=== PATIENT | male | born 1970 | race Caucasian/White ===

== ENCOUNTER 2017-05-22 14:20 | Observation (INO) | payer OTHER ==
[~2017-05-22] VITALS: Ht 185.4 cm; Wt 110.5 kg
[~2017-05-22 14:20] MED LIST: ASPI1TAB83 PO; ATOR80TA PO; CLOP1TAB15 PO; DXY100 PO; ISOS60TA25 PO; LISI5TAB3 PO; METO50TA16 PO; OXYC-57 PO; XPNIN INH
[2017-05-22] MEDS ORDERED: SODIUM CHLORIDE 0.9% 1000ML 1,000 ML IV STA (14:49)
[2017-05-22] MEDS ORDERED: HYDR-5688 PO (14:50)
[2017-05-22] MEDS ORDERED: ALPR-411 PO (14:50)
[2017-05-22 15:03] LABS: BASO % 0.4 %; BASO ABS # 0.03 K/uL (0-0.2); COMPLETE YES; HEMATOCRIT 39.3 % (42-52); IG% 0.1 %; LYMPH % 27.9 %; LYMPH ABS # 1.97 K/uL (1.2-3.4); MEAN CELL VOLUME 90.6 fL (80-100); MEAN CORPUSCULAR HEMOGLOBIN 31.6 pg (25-34); MEAN CORPUSCULAR HGB CONC 34.9 g/dl (32-36); MONO % 8.2 %; NEUT % 61.4 %; PLATELET COUNT 182 K/uL (130-400); RED BLOOD COUNT 4.34 M/uL (4.7-6.1); WHITE BLOOD COUNT 7.07 K/uL (4.8-10.8)
--- NOTE | 2017-05-22 15:07 | DIAGNOSTIC IMAGING REPORT ---
CHEST ONE VIEW PORTABLE CLINICAL HISTORY: CHEST PAIN dyspnea COMPARISON STUDY: 05/13/2016 FINDINGS: The bones soft tissues and hemidiaphragms are normal. The cardiomediastinal silhouette is normal. The lungs are clear. The pulmonary vasculature is normal. IMPRESSION: Negative chest. Electronically signed by: Dirk Sibley M.D. 05/22/2017 3:06 PM Dictated Date/Time: 05/22/2017 3:06 PM
[2017-05-22 15:16] LABS: PARTIAL THROMBOPLASTIN RATIO 1.1; PROTHROMBIN TIME (PATIENT) 10.6 SECONDS (9.0-12.0)
[2017-05-22 15:21] LABS: BLOOD UREA NITROGEN 19 mg/dl (7-18); BUN/CREATININE RATIO 20.4 (10-20); CALCIUM 9.1 mg/dl (8.5-10.1); CARBON DIOXIDE 25 mmol/L (21-32); CHLORIDE 108 mmol/L (98-107); CREATININE 0.93 mg/dl (0.60-1.40); GLUCOSE 108 mg/dl (70-99); POTASSIUM 4.1 mmol/L (3.5-5.1); SODIUM 140 mmol/L (136-145)
[2017-05-22 15:24] LABS: ALKALINE PHOSPHATASE 56 U/L (45-117); ALT/SGPT 40 U/L (12-78); AST/SGOT 23 U/L (15-37)
[2017-05-22] MEDS ORDERED: IV FLUIDS COMPLETED PRN (16:30)
[2017-05-22] MEDS ORDERED: ASPIRIN 81 MG CHEW PO STA (16:38)
[2017-05-22 16:43] LABS: CKMB/CK RATIO 1.6 (0-3.0)
[2017-05-22] MEDS ORDERED: ACETAMINOPHEN 325 MG TAB PO PRN (16:45)
[2017-05-22] MEDS ORDERED: NITROGLYCERIN 0.4 MG SL PER TAB CHARGE SL PRN (16:45)
[2017-05-22] MEDS ORDERED: ONDANSETRON INJ 2 MG/ML 2 ML VIAL IV PRN (16:45)
[2017-05-22] MEDS ORDERED: LSN5 PO (16:51)
[2017-05-22] MEDS ORDERED: NTRGSL/4 SL (16:51)
[2017-05-22] MEDS ORDERED: ALPRAZOLAM 0.5 MG TAB PO PRN (17:00)
[2017-05-22 17:33] VITALS: BP 144/74; PULSE 61; TEMP 36.6; O2SAT 97; Ht 185.4 cm; Wt 110.5 kg
--- NOTE | 2017-05-22 19:24 | History and Physical ---
History & Physical Date & Time of Service: May 22, 2017 at 16:48 Chief Complaint: Chest Discomfort, Sob Primary Care Physician: Dirk Mcnulty M.D. History of Present Illness Source: patient, clinic records, hospital records This is a 46 y/o male with PMH of premature CAD s/p multiple stents, last stent placed 07/2016 [place] [facility] [place] [facility] [place], hypertension, dyslipidemia, tobacco abuse, lumbar spinal stenosis, and other problems listed below who presents to the ED with chest pain. Patient states chest pain has been intermittent x 2 weeks. Pain occurs with exertion and resolves with rest. Episodes last 30 seconds to a few minutes. He describes tension in substernal area with radiation to his left upper chest and his anterior neck. He is diaphoretic with the episodes. While working last night he had an episode of nausea and lightheadedness which resolved after 1 minute. He was doing heavy lifting at work last night of 55 lb boxes. He also reports SRINIVASAN for past few weeks at work and with climbing stairs which is unusual for him. Last episode of chest pain was this morning. He is now chest pain free. Has not taken nitro. Patient states last time he felt this way in 07/2016 Dr. Matos scheduled him for a cardiac cath and he was found to have a blockage which was stented. Patient was treated for acute sinusitis in early 05/2017 with resolution. Now has baseline "smoker's cough" with clear sputum. Had cut down to 1/4 PPD on Chantix but now increased to 1 PPD due to recent stress at home. He denies fever, chills, rhinorrhea, syncope, palpitations, reflux, vomiting, abdominal pain, change in bowel or bladder movements, calf pain, edema, abnormal bleeding. Past Medical/Surgical History Medical Problems: (1) Coronary artery disease Status: Chronic (2) Dyslipidemia Status: Chronic (3) History of kidney stones Status: Chronic (4) Hypertension Status: Chronic (5) Lumbar spinal stenosis Status: Chronic (6) Melanoma Status: Resolved (7) Myocardial infarct Status: Resolved (8) Tobacco use disorder Status: Chronic Surgical Problems: (1) H/O melanoma excision Status: Chronic (2) H/O vasectomy Status: Chronic (3) History of arthroscopy of right shoulder Status: Chronic (4) S/P ACL repair Permanent Comment: left knee Status: Chronic (5) S/p subcutaneous tumor removal Status: Chronic (6) Stented coronary artery Permanent Comment: 12/25/2010- POBA to diagonal; 12/03/2012- BMS to circumflex; - PCI/ BMS of 90% ostial RCA at [facility]; 07/08/2016- PCI/ RICKY to right PDA at [facility] [place] Status: Resolved Family History Cancer Diabetes mellitus Premature CAD FATHER (first IN age 38, s/p heart transplant age 50, alive) Social History Smoking Status: Current Every Day Smoker (1 ppd. had cut down to 1/4 ppd on Chantix but recently increased. ) Alcohol Use: occasionally Drug Use: none Marital Status: Housing status: lives with family Occupational Status: employed Immunizations History of Influenza Vaccine: Yes Influenza Vaccine Date: Sep 23, 2012 History of Tetanus Vaccine?: Unknown History of Pneumococcal: No History of Hepatitis B Vaccine: Unknown Multi-Drug Resistant Organisms History of MDRO: No Allergies Coded Allergies: No Known Allergies (Verified , 05/13/16) Home Medications Scheduled Aspirin (Aspirin), 81 MG PO DAILY Atorvastatin Calcium (Lipitor), 80 MG PO HS Clopidogrel (Plavix), 75 MG PO DAILY Hydrocodone/Acetaminophen 5MG/325MG ([place] 5MG/325MG), 2 TABLETS PO QAM Isosorbide Mononitrate Ext Rel (Imdur Ext Rel), 120 MG PO QAM Lisinopril (Lisinopril), 5 MG PO DAILY Metoprolol Tartrate (Lopressor) (Lopressor), 50 MG PO BID Scheduled PRN Alprazolam (Xanax), 0.5 MG PO TID PRN for Anxiety Nitroglycerin (Nitrostat), 1 TAB SL UD PRN for Chest Pain Review of Systems Ten systems reviewed and negative except as noted in HPI. Physical Exam Vital Signs Date Time Temp Pulse Resp B/P (MAP) Pulse Ox O2 Delivery O2 Flow Rate FiO2 05/22/17 15:56 107/66 05/22/17 15:50 67 20 93 05/22/17 15:20 70 17 94 05/22/17 14:50 66 18 98 05/22/17 14:29 66 05/22/17 14:22 36.5 75 18 129/76 97 Room Air General Appearance: WD/WN, no apparent distress, + pertinent finding (alert cooperative 46 year old male, no distress) Head: normocephalic, atraumatic Eyes: normal inspection, PERRL, EOMI ENT: hearing grossly normal, pharynx normal Neck: supple, trachea midline Respiratory/Chest: chest non-tender, lungs clear, normal breath sounds, no respiratory distress, no accessory muscle use Cardiovascular: regular rate, rhythm, no murmur Abdomen/GI: normal bowel sounds, non tender, soft Extremities/Musculoskelatal: normal inspection, no calf tenderness, no pedal edema, + pertinent finding (no pain L shoulder ROM) Neurologic/Psych: alert, normal mood/affect, oriented x 3, + pertinent finding (no focal deficit on gross examination) Skin: normal color, warm/dry, no rash (no rash on chest) Diagnostics Laboratory Results Results Past 24 Hours Test 05/22/17 14:55 05/22/17 15:01 Range/Units White Blood Count 7.07 4.8-10.8 K/uL Red Blood Count 4.34 4.7-6.1 M/uL Hemoglobin 13.7 14.0-18.0 g/dL Hematocrit 39.3 42-52 % Mean Corpuscular Volume 90.6 80-100 fL Mean Corpuscular Hemoglobin 31.6 25-34 pg Mean Corpuscular Hemoglobin Concent 34.9 32-36 g/dl Platelet Count 182 130-400 K/uL Mean Platelet Volume 10.0 7.4-10.4 fL Neutrophils (%) (Auto) 61.4 % Lymphocytes (%) (Auto) 27.9 % Monocytes (%) (Auto) 8.2 % Eosinophils (%) (Auto) 2.0 % Basophils (%) (Auto) 0.4 % Neutrophils # (Auto) 4.34 1.4-6.5 K/uL Lymphocytes # (Auto) 1.97 1.2-3.4 K/uL Monocytes # (Auto) 0.58 0.11-0.59 K/uL Eosinophils # (Auto) 0.14 0-0.5 K/uL Basophils # (Auto) 0.03 0-0.2 K/uL RDW Standard Deviation 46.4 36.4-46.3 fL RDW Coefficient of Variation 14.1 11.5-14.5 % Immature Granulocyte % (Auto) 0.1 % Immature Granulocyte # (Auto) 0.01 0.00-0.02 K/uL Prothrombin Time 10.6 9.0-12.0 SECONDS Prothromb Time International Ratio 1.0 0.9-1.1 Activated Partial Thromboplast Time 27.8 21.0-31.0 SECONDS Partial Thromboplastin Ratio 1.1 Sodium Level 140 136-145 mmol/L Potassium Level 4.1 3.5-5.1 mmol/L Chloride Level 108 98-107 mmol/L Carbon Dioxide Level 25 21-32 mmol/L Anion Gap 7.0 3-11 mmol/L Blood Urea Nitrogen 19 7-18 mg/dl Creatinine 0.93 0.60-1.40 mg/dl Est Creatinine Clear Calc Drug Dose 130.8 ml/min Estimated GFR () 115.3 Estimated GFR (Non- 99.5 BUN/Creatinine Ratio 20.4 10-20 Random Glucose 108 70-99 mg/dl Calcium Level 9.1 8.5-10.1 mg/dl Total Bilirubin 0.4 0.2-1 mg/dl Direct Bilirubin < 0.1 0-0.2 mg/dl Aspartate Amino Transf (AST/SGOT) 23 15-37 U/L Alanine Aminotransferase (ALT/SGPT) 40 12-78 U/L Alkaline Phosphatase 56 45-117 U/L Total Creatine Kinase 194 39-308 U/L Creatine Kinase MB 3.2 0.5-3.6 ng/ml Creatine Kinase MB Ratio 1.6 0-3.0 Troponin I < 0.015 0-0.045 ng/ml Total Protein 6.9 6.4-8.2 gm/dl Albumin 3.5 3.4-5.0 gm/dl Lipase 125 73-393 U/L Bedside Troponin I < 0.030 0-0.045 ng/ml Diagnostic Radiology CHEST ONE VIEW PORTABLE CLINICAL HISTORY: CHEST PAIN dyspnea COMPARISON STUDY: 05/13/2016 FINDINGS: The bones soft tissues and hemidiaphragms are normal. The cardiomediastinal silhouette is normal. The lungs are clear. The pulmonary vasculature is normal. IMPRESSION: Negative chest. EKG NSR, 64 bpm, no ST or T wave abnormality, no significant change from prior EKG Impression Assessment and Plan EXERTIONAL CHEST PAIN R/o ACS; known history of premature CAD s/p multiple stents- 12/25/2010- POBA to diagonal; 12/03/2012- BMS to circumflex; 05/13/2016- PCI/ BMS of 90% ostial RCA at [facility]; 07/08/2016- PCI/ RICKY to right PDA at [facility] [place]; HTN, HL, current smoker Prior echo 05/13/2016 - The left ventricle is normal in size. The left ventricular wall motion is normal. Left ventricular systolic function is normal. Ejection Fraction = 55-60%. The right ventricular systolic function is normal. The left atrial size is normal. Right atrial size is normal. No significant valvular pathology. History typical for angina; now chest pain free Initial troponin negative EKG- no ischemic changes CXR- unremarkable Will give 4 baby aspirin Trend serial cardiac enzymes Check echo Repeat EKG in am Continue aspirin, Plavix, isosorbide, beta og, EMI-I, statin Consult cardiology; case discussed with Dr. Hurtado HYPERTENSION BP is stable Continue isosorbide, beta og, EMI-I DYSLIPIDEMIA Continue statin TOBACCO ABUSE Counselled for cessation DVT PROPHYLAXIS Heparin SQ FULL CODE DISPOSITION Observation to telemetry Follows with Dr. Mcnulty for primary care Patient seen in collaboration with Dr. Hunter. Please see his addendum. Agree with above H and P. Briefly 46M with hx of pre mature CAD and multiple stents presents with chest pain going on, on and off for about 2 weeks.Exertion bringing on the pain and rest resolves it. Lately he is getting sob also on exertion. Afebrile. No cough. Currently no pain and hemodynamically stable. Resting comfortably. p/e Ge not in ditress Cvs s1 and s2 heard no murmurs Rs cta b/l no added sounds Abd benign Development Trainer noin focal Ext no edema a/p Chest pain hx of pre mature CAd with stents continue home meds cardiology consulted and plan for cardiac cath in am HTN home meds will monitor VTE Prophylaxis VTE Risk Assessment Done? Y/N: Yes Risk Level: Moderate
[2017-05-22 19:45] VITALS: BP 123/71; PULSE 63; TEMP 36.4; O2SAT 96
[2017-05-22] MEDS ORDERED: ATORVASTATIN 40 MG TAB PO SCH (21:00)
[2017-05-22 21:30] LABS: CKMB/CK RATIO 1.6 (0-3.0)
[2017-05-22] MEDS: METOPROLOL TARTRATE 50 MG TAB PO SCH (21:47)
[2017-05-22] MEDS: HEPARIN SOD 5000 UNIT/0.5 ML CARP SQ SCH (21:47)
--- NOTE | 2017-05-22 23:12 | CARDIOLOGY CONSULTATION ---
DATE OF CONSULTATION: 05/22/2017 REFERRING: Dr. Hunter and Shelly Rosario PA-C. PRIMARY CARE PHYSICIAN: Dr. Mcnulty. PRIMARY CRM SOLUTION ARCHITECT: Dr. Matos. REFERRAL DIAGNOSIS: Crescendo angina. HISTORY OF PRESENT ILLNESS: The patient is a complex 46-year-old male whose history is notable for significant premature atherosclerotic coronary disease with prior coronary intervention including balloon angioplasty to a diagonal in 2010, bare metal stent to the left circumflex in 2012, bare metal stent to a 90% ostial right coronary artery in 05/2016 and subsequent drug-eluting stent to the right posterior descending artery in 07/2016. Underlying medical problems include familial history of premature atherosclerosis, ongoing tobacco use, hypertension, dyslipidemia. The patient presents now noting over the past 2 weeks increasing symptoms of exertional chest pressure, pain, and shortness of breath. His symptoms are clinically consistent with his past angina. Last night had sustained episode lasting several minutes while working at work with associated diaphoresis and lightheadedness. Symptoms spontaneously resolved, though he has felt worse today, contacted physician's office who recommended ER evaluation given persistent symptoms and past episodes. He does note increased emotional stressors at home as well as his ongoing tobacco use. Notes no fevers, chills or sweats. Notes no bleeding difficulties. Notes no melena or hematochezia. Appetite has been good. Weight is up approximately 20 pounds over the last 8 months' time. Denies headache or visual changes. Notes no rash or arthritic complaints. He has been compliant with current medical regimen. ALLERGIES: None. MEDICATIONS: Per history notable for lisinopril 5 mg per day, alprazolam p.r.n., hydrocodone/acetaminophen p.r.n., usually 2 tablets in a.m., atorvastatin 80 mg per day, isosorbide 120 mg p.o. day, Plavix 75 mg per day, metoprolol tartrate 50 mg twice per day, Chantix, aspirin 81 mg per day. REVIEW OF SYSTEMS: As per HPI and otherwise negative. PAST SURGICAL HISTORY: Notable for prior remote vasectomy, knee surgery, arthroscopic shoulder surgery on the right, ACL repair in 2001, melanoma resection 2008 left shoulder. FAMILY HISTORY: Notable for premature coronary disease in the family with father undergoing prior cardiac transplant for progressive coronary artery disease. SOCIAL HISTORY: The patient is a one-half pack per day smoker, is attempting to wean, uses occasional alcoholic beverages, has a production job currently. PHYSICAL EXAMINATION: VITAL SIGNS: Heart rate 64, blood pressure is 103/64. HEENT: Normocephalic, atraumatic. Nares without discharge. Throat is clear. NECK: Supple without thyromegaly, lymphadenopathy, JVD or bruit. LUNGS: Clear to auscultation. CARDIOVASCULAR: Regular with normal S1, S2. There is no murmur, gallop or rub. ABDOMEN: Soft, nontender. There is no palpable hepatosplenomegaly. There is no hepatojugular reflux. EXTREMITIES: Without cyanosis or clubbing. There is no peripheral edema. LABORATORY DATA: Sodium is 140, potassium is 4.1, chloride is 108, bicarb is 25, BUN is 19, creatinine 0.9. CK-MBs and troponins are normal. AST and ALT are normal. Lipase is 125. Chest x-ray reveals no infiltrate or edema. EKG reveals sinus rhythm with normal tracing. White cell count 7.0, hemoglobin is 13.7, platelet count is 182. IMPRESSION: A 46-year-old male with history of premature coronary atherosclerosis, multiple coronary interventions, presents now with symptoms consistent with the patient's angina with episode that sustained last evening at moderate level workload. He has been noting increasing frequency of symptoms over the past 2 weeks. He feels in part due to increased stress at home and increased tobacco use. Notes no sustained episodes. Notes no sensation of tachyarrhythmias. Notes no bleeding difficulties. He has been compliant with meds. RECOMMENDATIONS: We will maintain on telemetry overnight and usual medications as ordered. Anticipate possible cardiac catheterization in a.m., procedure will be scheduled. Procedure and risks explained in detail, the patient is aware of risks and procedure, will be kept n.p.o. after midnight. LOREN
--- NOTE | 2017-05-22 23:26 | EMERGENCY ROOM VISIT NOTE ---
ED Visit Note First contact with patient: 14:47 Chief Complaint: Chest pain. History of Present Illness: Mr. Sherman is a 46 year-old white male complaining of chest pain. Historically patient reports coronary artery disease and is status post stent placement 3, hypertension, dyslipidemia and tobacco use. Additionally he reports he has a family history of premature coronary artery disease. Patient reports over the last 2-3 weeks he has been having recurrent episodes of chest pain. He reports approximately 80% of these episodes are exertional and resolved with rest. He describes his discomfort as a pressure sensation either in the upper sternal area or the midsternal area. His discomfort also radiates into the left anterior chest and left anterior shoulder. At its worse he reports his pain as 5/10 and at its least it is 1/10. Currently he reports he is pain-free. These episode of pain can last 3-5 minutes. He has not taken any medications for his discomfort. He does report for the last time last night it was slightly longer than normal and he developed nausea without vomiting and lightheadedness and felt he was going to pass out. After resting once again his symptoms resolve. Additionally he reports he has been having increasing family stress specifically with his kids. Patient denies fevers, chills, sweats, skin eruptions, skin color changes, upper respiratory tract symptoms, wheezing, cough, shortness of breath, orthopnea, dependent edema, previous clots, claudication, cramping, recent surgery/inactivity/extended travel, abdominal pain, nausea, vomiting, diarrhea, constipation, rectal bleeding, black/tarry stools, urinary symptoms, back/flank pain. Review of Systems: As noted above in history of present illness. All body systems were reviewed and found to be negative as noted above. Past Medical History: As previously noted and kidney stones, lumbar spinal stenosis, melanoma, status post vasectomy, unspecified right shoulder surgery, unspecified anterior cruciate ligament repair. Current Medications: Medications Dose Route/Sig Max Daily Dose Days Date Category Dose Instructions Nitrostat (Nitroglycerin) 0.4 Mg Tab 1 Tab SL UD PRN 05/22/17 Reported Lisinopril 5 Mg Tab 5 Mg PO DAILY 05/22/17 Reported [place] 5MG/325MG (Acetaminophen/Hydrocodone Bitart) Tab 2 Tablets PO QAM 05/22/17 Reported PRN PAIN Xanax (Alprazolam) 0.5 Mg Tab 0.5 Mg PO TID PRN 05/22/17 Reported Imdur Ext Rel (Isosorbide Mononitrate) 60 Mg Ertab 120 Mg PO QAM 12/07/15 Reported Lipitor (Atorvastatin Calcium) 80 Mg Tab 80 Mg PO HS 01/02/14 Reported Aspirin 81 Mg Tab 81 Mg PO DAILY 01/02/14 Reported Lopressor (Metoprolol Tartrate) 50 Mg Tab 50 Mg PO BID 12/22/09 Reported Plavix (Clopidogrel Bisulfate) 75 Mg Tab 75 Mg PO DAILY 12/22/09 Reported Allergies to Medications: Patient denies. Social History: Patient is currently employed; he lives with his family and feels safe in his home environment; he admits to tobacco use. Physical Examination: Vital Signs: Date Time Temp Pulse Resp B/P (MAP) Pulse Ox O2 Delivery O2 Flow Rate FiO2 05/22/17 16:01 64 18 94 05/22/17 15:56 107/66 05/22/17 15:50 67 20 93 05/22/17 15:20 70 17 94 05/22/17 14:50 66 18 98 05/22/17 14:29 66 05/22/17 14:22 36.5 75 18 129/76 97 Room Air GENERAL: 46-year-old male in mild distress due to symptoms, nontoxic-appearing, afebrile and hemodynamically stable. NEUROLOGICAL: Awake, alert and oriented to person, place and time. Answering questions appropriately and following commands. Normal gait. Good hand eye coordination. SKIN: Warm, dry and pink. No soft tissue eruptions or trauma noted. HEENT: Atraumatic and normocephalic. PERRL. Sclera white and conjunctiva pink. Oral cavity moist and pink. Pharynx is nonerythematous or edematous. Speech normal. No lymphadenopathy. Trachea midline. No jugular venous distention. BACK: No tenderness over the bony spine. No CVA tenderness. THORAX: Lungs sounds are clear to auscultation and equal bilaterally with symmetrical chest wall. No wheezing, rales or rhonchi. No crepitus, tenderness , subcutaneous air or deformities noted. HEART: Regular rate and rhythm. No gallops, rubs or murmurs are appreciated. No lifts, heaves or thrills. PMI is not displaced. ABDOMEN: Flat, soft and nontender. Positive bowel sounds in all quadrants. No guarding, rigidity or organomegaly. EXTREMITIES: Moves all extremities well on command and with purpose. All distal neurovascular statuses are intact and equal bilaterally. No dependent edema or calf tenderness/cords. ED Course: Patient is assessed as noted above. Patient's medication list was reviewed. Laboratory Testing: Test 05/22/17 14:55 05/22/17 15:01 Range/Units White Blood Count 7.07 4.8-10.8 K/uL Red Blood Count 4.34 4.7-6.1 M/uL Hemoglobin 13.7 14.0-18.0 g/dL Hematocrit 39.3 42-52 % Mean Corpuscular Volume 90.6 80-100 fL Mean Corpuscular Hemoglobin 31.6 25-34 pg Mean Corpuscular Hemoglobin Concent 34.9 32-36 g/dl Platelet Count 182 130-400 K/uL Mean Platelet Volume 10.0 7.4-10.4 fL Neutrophils (%) (Auto) 61.4 % Lymphocytes (%) (Auto) 27.9 % Monocytes (%) (Auto) 8.2 % Eosinophils (%) (Auto) 2.0 % Basophils (%) (Auto) 0.4 % Neutrophils # (Auto) 4.34 1.4-6.5 K/uL Lymphocytes # (Auto) 1.97 1.2-3.4 K/uL Monocytes # (Auto) 0.58 0.11-0.59 K/uL Eosinophils # (Auto) 0.14 0-0.5 K/uL Basophils # (Auto) 0.03 0-0.2 K/uL RDW Standard Deviation 46.4 36.4-46.3 fL RDW Coefficient of Variation 14.1 11.5-14.5 % Immature Granulocyte % (Auto) 0.1 % Immature Granulocyte # (Auto) 0.01 0.00-0.02 K/uL Prothrombin Time 10.6 9.0-12.0 SECONDS Prothromb Time International Ratio 1.0 0.9-1.1 Activated Partial Thromboplast Time 27.8 21.0-31.0 SECONDS Partial Thromboplastin Ratio 1.1 Sodium Level 140 136-145 mmol/L Potassium Level 4.1 3.5-5.1 mmol/L Chloride Level 108 98-107 mmol/L Carbon Dioxide Level 25 21-32 mmol/L Anion Gap 7.0 3-11 mmol/L Blood Urea Nitrogen 19 7-18 mg/dl Creatinine 0.93 0.60-1.40 mg/dl Est Creatinine Clear Calc Drug Dose 130.8 ml/min Estimated GFR () 115.3 Estimated GFR (Non- 99.5 BUN/Creatinine Ratio 20.4 10-20 Random Glucose 108 70-99 mg/dl Calcium Level 9.1 8.5-10.1 mg/dl Total Bilirubin 0.4 0.2-1 mg/dl Direct Bilirubin < 0.1 0-0.2 mg/dl Aspartate Amino Transf (AST/SGOT) 23 15-37 U/L Alanine Aminotransferase (ALT/SGPT) 40 12-78 U/L Alkaline Phosphatase 56 45-117 U/L Total Creatine Kinase 194 39-308 U/L Creatine Kinase MB 3.2 0.5-3.6 ng/ml Creatine Kinase MB Ratio 1.6 0-3.0 Troponin I < 0.015 0-0.045 ng/ml Total Protein 6.9 6.4-8.2 gm/dl Albumin 3.5 3.4-5.0 gm/dl Lipase 125 73-393 U/L Bedside Troponin I < 0.030 0-0.045 ng/ml Chest X-Rays: Were read by myself and reviewed with Dr. Burton; shows no acute infiltrates, effusions or pneumothorax. Normal heart silhouette and bony anatomy. This was compared to previous and no acute changes were noted. EKG: Was read by myself and reviewed with Dr. Burton; shows normal sinus rhythm with a ventricular rate of 64 bpm. Normal axis, intervals and complexes. No acute ST changes indicating ischemia, injury or infarction. This was compared to a previous and no acute changes were noted. Patient was hydrated with normal saline. Patient was reassessed multiple times during his stay in the emergency department. Patient's case was reviewed with Dr. Burton; we agreed on diagnostic approach, treatment, disposition and plan. Patient's case was consulted with case management and Ms. Vicki PA-C [facility] for medical observation/admission. Patient was educated about today's findings. Clinical Impression: Chest pain. Decision-Making: Initially my differential diagnosis I considered myocardial infarction, pericarditis, pulmonary embolism, pneumothorax, pneumonia, musculoskeletal disorder and other causes. Disposition and Plan: Patient be brought in the hospital by the hospitalist; please see their notes and orders for final disposition and plan.
[2017-05-22 23:39] VITALS: BP 111/71; PULSE 56; TEMP 36.5; O2SAT 96
[2017-05-22] MEDS: SODIUM CHLORIDE 0.9% 1000ML 1,000 ML IV SCH (23:44)
[2017-05-22 23:59] VITALS: O2SAT 96
[2017-05-23] VITALS (18 sets, daily range): BP systolic 116–136; BP diastolic 68–82; PULSE 57–78; TEMP 36.4–36.7; O2SAT 70–97
[2017-05-23 03:35] LABS: CHOLESTEROL 118 mg/dl (0-200); CHOLESTEROL/HDL RATIO 3.1; CKMB/CK RATIO 1.8 (0-3.0); HDL CHOLESTEROL 38 mg/dl; LDL CHOLESTEROL CALCULATED 62 mg/dl; TRIGLYCERIDES 92 mg/dl (0-150); VERY LOW DENSITY LIPOPROT CALC 18 mg/dl
[2017-05-23] MEDS: HEPARIN SOD 5000 UNIT/0.5 ML CARP SQ SCH ×2 (05:33→14:00)
[2017-05-23] MEDS ORDERED: LISINOPRIL 5 MG TAB PO SCH (09:00)
[2017-05-23] MEDS ORDERED: ASPIRIN 81 MG ECTAB PO SCH (09:00)
[2017-05-23] MEDS ORDERED: HYDROCODONE/ACETAMOPHEN 5/325MG TAB PO SCH (09:00)
[2017-05-23] MEDS ORDERED: ISOSORBIDE MONONITRATE 60 MG TABCR PO SCH (09:00)
[2017-05-23] MEDS ORDERED: CLOPIDOGREL BISULFATE 75 MG TAB PO SCH (09:00)
[2017-05-23] MEDS ORDERED: HYDROCODONE/ACETAMOPHEN 5/325MG TAB PO PRN (09:00)
[2017-05-23] MEDS: METOPROLOL TARTRATE 50 MG TAB PO SCH (09:00)
[2017-05-23] MEDS: SODIUM CHLORIDE 0.9% 1000ML 1,000 ML IV SCH (11:58)
--- NOTE | 2017-05-23 13:42 | ECHOCARDIOGRAM REPORT ---
*NOTICE TO RECEIVING DEMOCRAT AGENCY This information is strictly Confidential and protected under [place] law. [place] law prohibits you from making any further disclosure of this information unless further disclosure is expressly permitted by the written consent of the person to whom it pertains or is authorized by law. A general authorization for the release of medical or other information is not sufficient for this purpose. Hospital accepts no responsibility if the information is made available to any other person, INCLUDING THE PATIENT. Interpretation Summary * Name: RA BELTRAN SR Study Date: 05/23/2017 10:44 AM BP: 128/77 mmHg * Patient Location: C.2T\S\E222\S\1 HR: 56 * : 1970 (M/d/yyyy) Gender: Male Height: 72 in * Age: 46 yrs Ethnicity: CA Weight: 246 lb * Ordering Physician: Shelly Rosario * Referring Physician: Shaquille Matos D.O. * Performed By: Rhiannon Martini RCS * * Reason For Study: CHEST PAIN * BSA: 2.3 m2 * -- Conclusions -- * The left ventricle is normal in size. * There is borderline concentric left ventricular hypertrophy. * The left ventricular wall motion is normal. * Left ventricular systolic function is normal. * Ejection Fraction = 55-60%. * The aortic root is normal size. * There is no pericardial effusion. Procedure Details * A complete two-dimensional transthoracic echocardiogram was performed (2D, M-mode, Doppler and color flow Doppler). Left Ventricle * The left ventricle is normal in size. * There is borderline concentric left ventricular hypertrophy. * Ejection Fraction = 55-60%. * Left ventricular systolic function is normal. * The left ventricular wall motion is normal. Right Ventricle * The right ventricle is normal in size and function. Atria * The left atrial size is normal. * Right atrial size is normal. * No ASD detected; PFO is not assessed. Mitral Valve * The mitral valve anatomy is normal. * There is no mitral valve stenosis. * There is trace mitral regurgitation. Tricuspid Valve * The tricuspid valve anatomy is normal. * There is no tricuspid stenosis. * There is trace tricuspid regurgitation. Aortic Valve * The aortic valve is trileaflet. * No hemodynamically significant valvular aortic stenosis. * No aortic regurgitation is present. Pulmonic Valve * The pulmonic valve is not well visualized. Great Vessels * The aortic root is normal size. Pericardium/Pleural * There is no pericardial effusion. Great Vessels * Normal inferior vena cava diameter and respiratory variation suggests normal central venous pressure. MMode 2D Measurements and Calculations IVSd 1.2 cm IVSs 1.6 cm LVIDd 6.0 cm LVIDs 3.7 cm LVPWd 1.0 cm LVPWs 1.3 cm IVS/LVPW 1.1 FS 38.0 % EDV(Teich) 183.0 ml ESV(Teich) 59.9 ml EF(Teich) 67.3 % EDV(cubed) 220.8 ml ESV(cubed) 52.6 ml EF(cubed) 76.2 % % IVS thick 40.9 % % LVPW thick 22.4 % LV mass(C)d 282.2 grams LV mass(C)dI 121.3 grams/m\S\2 LV mass(C)s 201.5 grams LV mass(C)sI 86.6 grams/m\S\2 SV(Teich) 123.1 ml SI(Teich) 52.9 ml/m\S\2 SV(cubed) 168.1 ml SI(cubed) 72.3 ml/m\S\2 Ao root diam 3.3 cm Ao root area 8.4 cm\S\2 ACS 2.5 cm LA dimension 3.8 cm LA/Ao 1.2 LVOT diam 2.0 cm LVOT area 3.0 cm\S\2 LVAd ap4 37.9 cm\S\2 LVLd ap4 9.6 cm EDV(MOD-sp4) 121.6 ml EDV(sp4-el) 127.4 ml LVAs ap4 20.9 cm\S\2 LVLs ap4 7.4 cm ESV(MOD-sp4) 50.7 ml ESV(sp4-el) 49.7 ml EF(MOD-sp4) 58.3 % EF(sp4-el) 61.0 % LVAd ap2 42.5 cm\S\2 LVLd ap2 9.4 cm EDV(MOD-sp2) 158.4 ml EDV(sp2-el) 163.2 ml LVAs ap2 25.3 cm\S\2 LVLs ap2 7.6 cm ESV(MOD-sp2) 72.2 ml ESV(sp2-el) 71.2 ml EF(MOD-sp2) 54.4 % EF(sp2-el) 56.4 % LVLd %diff -2.02 % EDV(MOD-bp) 141.1 ml LVLs %diff 2.7 % ESV(MOD-bp) 61.2 ml EF(MOD-bp) 56.6 % SV(MOD-sp4) 71.0 ml SI(MOD-sp4) 30.5 ml/m\S\2 SV(MOD-sp2) 86.2 ml SI(MOD-sp2) 37.0 ml/m\S\2 SV(MOD-bp) 79.9 ml SI(MOD-bp) 34.3 ml/m\S\2 SV(sp4-el) 77.7 ml SI(sp4-el) 33.4 ml/m\S\2 SV(sp2-el) 92.1 ml SI(sp2-el) 39.6 ml/m\S\2 Doppler Measurements and Calculations MV E max roxana 66.9 cm/sec MV A max roxana 49.6 cm/sec MV E/A 1.3 MV P1/2t max roxana 71.6 cm/sec MV P1/2t 81.6 msec MVA(P1/2t) 2.7 cm\S\2 MV dec slope 257.0 cm/sec\S\2 MV dec time 0.25 sec Ao V2 max 108.7 cm/sec Ao max PG 4.7 mmHg Ao max PG (full) 0.15 mmHg PAT(V,A) 3.0 cm\S\2 PAT(V,D) 3.0 cm\S\2 LV V1 max PG 4.6 mmHg LV V1 max 107.0 cm/sec PA V2 max 94.2 cm/sec PA max PG 3.5 mmHg PI max roxana 162.4 cm/sec PI max PG 10.6 mmHg PI dec slope 136.4 cm/sec\S\2 PI P1/2t 348.9 msec TR max roxana 197.7 cm/sec
[2017-05-23] MEDS ORDERED: NiCARDipine HCL INJ 2.5 MG/ML 10 ML AMP ONE (14:11)
[2017-05-23] MEDS ORDERED: HEPARIN SOD (PORCINE) 1000 UNIT/ML 10 ML VIAL ONE (14:11)
[2017-05-23] MEDS ORDERED: NITROGLYCERIN/D5W 100MCG/ML 20ML SYR ONE (14:12)
[2017-05-23] MEDS ORDERED: FENTANYL CITRATE INJ 50 MCG/1 ML 2 ML VIAL ONE (14:12)
[2017-05-23] MEDS ORDERED: MIDAZOLAM HCL 1 MG/ML 2ML VIAL ONE (14:12)
[2017-05-23] MEDS ORDERED: SODIUM CHLORIDE 0.9% 1000ML 1,000 ML IV SCH (15:03)
[2017-05-23] MEDS ORDERED: SODIUM CHLORIDE 0.9% 1000ML 250 ML IV PRN (15:03)
--- NOTE | 2017-05-23 15:06 | Procedure Note ---
Pre-Mod Sedation Assessment General Date of Moderate Sedation: May 23, 2017. Vital Signs: Vital Signs Past 12 Hours Date Time Temp Pulse Resp B/P (MAP) Pulse Ox O2 Delivery O2 Flow Rate FiO2 05/23/17 15:00 Room Air 05/23/17 14:55 56 16 132/82 (99) 96 Room Air 05/23/17 12:00 Room Air 05/23/17 11:03 36.5 57 20 128/77 (94) 97 Room Air 05/23/17 08:00 Room Air 05/23/17 07:52 36.4 58 20 125/82 (96) 96 Room Air 05/23/17 04:50 36.5 66 20 120/76 95 Room Air 05/23/17 04:31 36.5 66 20 120/76 (91) 95 Room Air 05/23/17 04:00 Room Air Review Cardiovascular: regular rate, rhythm, no murmur, + bradycardia Abdomen: normal bowel sounds Airway Class: II Pre-Sedation Airway Assessment Oral Cavity: Chipped Teeth Short Thick Neck: No Hx of Sleep Apnea: No Smoking Status: Current Every Day Smoker ASA Classification: Class II Procedure Planning Contraindications-for Mod Sed: None Yes Notes The planned sedation has been discussed with the patient and consent obtained. I have identified the patient, determined the appropriateness of sedation and have assessed the patient immediately prior to the procedure. All medicine(s) and interventions are by my order.
[2017-05-23] MEDS ORDERED: ACETAMINOPHEN 325 MG TAB PO PRN (15:15)
--- NOTE | 2017-05-23 15:37 | [facility] Post Operative Brief Note ---
Preliminary Procedure Note Procedure Date May 23, 2017. Pre-Procedure Diagnosis Angina, CAD AUC Score 8 Post-Procedure Diagnosis Moderate CAD Procedure(s) Performed Coronary Angiography, Left Heart Cath, LV Angiography [employer] Technician Dr. Toby Hurtado Chorus Master(s) Carrington Page Estimated Blood Loss 15cc Medication(s) Heparin (5000u iv), Nicardipine (250mcg intraarterial after sheath insertion), Lidocaine 1% (local infiltration) Preliminary Findings Right dominant coronary anatomy Diffuse luminal irregularities all vessels without obstruction LM long with mild calcification, 20% distal stenosis LAD Type 1 with 2 diagonals LCX moderately large with high marginal branch, OM and PL branch. Patent stent in proximal segment without stenosis RCA Very large dominant, patent stents proximal 1/3 with 30% narrowing, distal RCA LV Normal EF 55% LVEDP 8 Recommendations Medical therapy and/or Counseling Specimens None Fluids (cc crystalloids) 57 Anesthesia Start 1432 Versed 1 mg IV, Fentanyl 12.5 mcg IV Stop 1455 Monitor Mere Procedural Complication(s) None Disposition PCU
--- NOTE | 2017-05-23 17:28 | Discharge Instructions ---
Discharge Instructions Procedure Procedure Date: May 23, 2017. Reason for Visit: Chest Discomfort, Sob. Discharge Discharge Date: May 23, 2017. Discharge Diagnosis: Chronic angina pectoris without progression in coronary artery disease Last Recorded Wt (Kilograms): 110.500 Anesthesia Post Anesthesia Instructions: If you have had General Anesthesia or IV Sedation: * Do not drive today. * Resume driving when surgeon permits. * Do not make important decisions or sign legal documents today. * Call surgeon for: 1. Temperature elevations greater than 101 degrees F. 2. Uncontrollable pain. 3. Excessive bleeding. 4. Persistent nausea and vomiting. 5. Medication intolerance (nausea, vomiting or rash). * For nausea and vomiting use only clear liquids such as: tea, soda, bouillon until nausea subsides, then gradually increase diet as tolerated. * If you have any concerns or questions, call your surgeon's office. If physician is unavailable and it is an emergency, call 911 or go to the nearest emergency room. Instructions Activity Recommendations: limitations as noted below Recommended Home Diet: resume previous diet Allergies: Coded Allergies: No Known Allergies (Verified , 05/13/16) Provider Instructions ACTIVITY RECOMMENDATIONS: Excess manipulation of the wrist should be avoided for the next 24-48 hours. * No lifting over 2 pounds (approximately a 1/2 gallon of milk) with the utilized arm for 24 hours. * No strenuous activity such as bowling or tennis for 3 days. * Keep the site of the procedure covered with a bandage for 24 hours. *You may shower the day after the procedure. Do not take a tub bath or submerge the puncture site in water for the next 3 days. *Do not operate any motorized equipment for 3 days. SPECIAL CARE INSTRUCTIONS: The site may be slightly bruised and sore following your procedure. Should any of the following occur, contact the Dr. who performed your procedure. 1. Redness/inflammation, swelling, chills, or fever, or colored drainage at procedure site within 3-7 days after your procedure. 2. Coldness, discoloration, ongoing numbness, severe pain, or swelling. Expect mild tingling of hand and tenderness at the puncture site for up to three days. If this persists beyond three days, or other symptoms develop, notify the Dr. who performed your procedure. BLEEDING: If the procedure site on your wrist begins to bleed, do not panic 1. Place 1 or 2 fingers firmly just slightly above the insertion site to stop the bleeding. You may be able to feel your pulse as you hold pressure. 2. Lift your finger after 5 minutes to see if the bleeding has stopped. 3. Once the bleeding has stopped, gently wipe the wrist area clean with a bandage. * If the bleeding from your wrist does not stop after 10 minutes, or if there is a large amount of bleeding or spurting, call 911 (do not drive yourself to the hospital). SKIN IRRITATION: * You may experience some redness and/or swelling in the area where radiation was administered. If any skin irritation occurs, please contact your family physician. FOLLOW UP VISIT: Keep any scheduled doctor appointments. Follow Up Follow-up with: DR Matos in next months time Marcella Gomez Recommendations: Call your doctor if: * Temperature above 101 degrees * Pain not relieved by pain medicine ordered * There is increased drainage or redness from any incision * You have any unanswered questions or concerns. Your Doctors Instructions noted above were prepared by provider Toby Hurtado. Patient Signature Section: Patient Instructions Signature Page Kenny Sherman Patient (or Guardian) Signature/Date: I have read and understand the instructions given to me by my caregivers. Caregiver/RN/Doctor Signature/Date: The above-named patient and/or guardian has received patient instructions on this date. + Original Patient Signature Page (only) stays with chart. Please make copy for patient.
--- NOTE | 2017-05-23 19:18 | Progress Note ---
Internal Med Progress Note Date of Service: May 23, 2017. Provider Documentation: SUBJECTIVE: currently chest pain free no sob afebrile s/p cardiac cath right radial route afebrile awaiting for discharge OBJECTIVE: Vital Signs-as noted below Exam: General-alert and oriented. Not in distress ENT-normal hearing Neck-no neck masses Lungs-cta b/l no wheezing or crackles Heart-s1 and s2 heard regular no murmurs Abdomen-soft bowel sounds present nontender no distension Extremities-no edema no erythema right radial cath site no erythema or drainage Neuro-alert and oriented moves extremities Lab data as noted below. ASSESSMENT & PLAN: EXERTIONAL CHEST PAIN R/o ACS; known history of premature CAD s/p multiple stents- 12/25/2010- POBA to diagonal; 12/03/2012- BMS to circumflex; 05/13/2016- PCI/ BMS of 90% ostial RCA at [facility]; 07/08/2016- PCI/ RICKY to right PDA [place] [facility] [place]; HTN, HL, current smoker CE and ekg unremarkable echo unremarkable s/p cardiac cath and no new findings discharged with home meds HYPERTENSION BP is stable Continue isosorbide, beta og, EMI-I DYSLIPIDEMIA Continue statin TOBACCO ABUSE Counselled for cessation Discharged home Vital Signs: Date Time Temp Pulse Resp B/P (MAP) Pulse Ox O2 Delivery O2 Flow Rate FiO2 05/23/17 19:00 67 16 134/72 (92) 96 Room Air 05/23/17 17:45 66 18 129/73 (91) 96 Room Air 05/23/17 17:30 67 18 133/78 (96) 96 Room Air 05/23/17 17:15 70 18 121/72 (88) 96 Room Air 05/23/17 17:00 71 20 129/70 (89) 95 Room Air 05/23/17 16:37 67 20 116/68 (84) 94 Room Air 05/23/17 16:25 70 20 123/72 (89) 70 Room Air 05/23/17 16:10 64 18 136/78 (97) 96 Room Air 05/23/17 16:00 Room Air 05/23/17 15:50 58 18 121/76 (91) 96 Room Air 05/23/17 15:35 65 18 94 Room Air 05/23/17 15:24 36.7 59 18 123/75 (91) 95 Room Air 05/23/17 15:23 36.7 59 20 123/75 (91) 95 05/23/17 15:10 53 16 128/76 (93) 95 Room Air 05/23/17 15:00 Room Air 05/23/17 14:55 56 16 132/82 (99) 96 Room Air 05/23/17 12:00 Room Air 05/23/17 11:03 36.5 57 20 128/77 (94) 97 Room Air 05/23/17 08:00 Room Air 05/23/17 07:52 36.4 58 20 125/82 (96) 96 Room Air 05/23/17 04:50 36.5 66 20 120/76 95 Room Air 05/23/17 04:31 36.5 66 20 120/76 (91) 95 Room Air 05/23/17 04:00 Room Air 05/22/17 23:59 96 Room Air 05/22/17 23:39 36.5 56 22 111/71 (84) 96 Room Air 05/22/17 20:00 Room Air 05/22/17 19:45 36.4 63 18 123/71 (88) 96 Room Air Lab Results: Results Past 24 Hours Test 05/22/17 21:02 05/23/17 02:50 Range/Units Total Creatine Kinase 159 137 39-308 U/L Creatine Kinase MB 2.6 2.4 0.5-3.6 ng/ml Creatine Kinase MB Ratio 1.6 1.8 0-3.0 Troponin I < 0.015 < 0.015 0-0.045 ng/ml Triglycerides Level 92 0-150 mg/dl Cholesterol Level 118 0-200 mg/dl HDL Cholesterol 38 mg/dl LDL Cholesterol, Calculated 62 mg/dl VLDL Cholesterol, Calculated 18 mg/dl Cholesterol/HDL Ratio 3.1
--- NOTE | 2017-05-23 19:28 | Discharge Summary ---
Discharge Summary Date of Service May 23, 2017. Discharge Summary Admission Date: May 22, 2017 at 16:10 Discharge Date: May 23, 2017 Discharge Disposition: Home Principal Diagnosis: CHEST PAIN Secondary Diagnoses/Problems: 1) Coronary artery disease Status: Chronic (2) Dyslipidemia Status: Chronic (3) History of kidney stones Status: Chronic (4) Hypertension Status: Chronic (5) Lumbar spinal stenosis Status: Chronic (6) Melanoma Status: Resolved (7) Myocardial infarct Status: Resolved (8) Tobacco use disorder Status: Chronic Procedures: CXR: Negative chest ECHO: The left ventricle is normal in size. * There is borderline concentric left ventricular hypertrophy. * The left ventricular wall motion is normal. * Left ventricular systolic function is normal. * Ejection Fraction = 55-60%. * The aortic root is normal size. * There is no pericardial effusion. S/P CARDIAC CATH Consultations: CARDIOLOGY Medication Reconciliation Continued Medications: Alprazolam (Xanax) 0.5 Mg Tab 0.5 MG PO TID PRN for Anxiety Aspirin (Aspirin) 81 Mg Tab 81 MG PO DAILY Atorvastatin Calcium (Lipitor) 80 Mg Tab 80 MG PO HS, TAB Clopidogrel (Plavix) 75 Mg Tab 75 MG PO DAILY, 0 Refills Hydrocodone/Acetaminophen 5MG/325MG ([place] 5MG/325MG) Tab 2 TABLETS PO QAM PRN PAIN Isosorbide Mononitrate Ext Rel (Imdur Ext Rel) 60 Mg Ertab 120 MG PO QAM, TAB Lisinopril (Lisinopril) 5 Mg Tab 5 MG PO DAILY Metoprolol Tartrate (Lopressor) (Lopressor) 50 Mg Tab 50 MG PO BID, 0 Refills Nitroglycerin (Nitrostat) 0.4 Mg Tab 1 TAB SL UD PRN for Chest Pain, #100 TAB 3 Refills Admission Information HPI (per Admitting provider): This is a 46 y/o male with PMH of premature CAD s/p multiple stents, last stent placed 07/2016 [place] [facility] [place], hypertension, dyslipidemia, tobacco abuse, lumbar spinal stenosis, and other problems listed below who presents to the ED with chest pain. Patient states chest pain has been intermittent x 2 weeks. Pain occurs with exertion and resolves with rest. Episodes last 30 seconds to a few minutes. He describes tension in substernal area with radiation to his left upper chest and his anterior neck. He is diaphoretic with the episodes. While working last night he had an episode of nausea and lightheadedness which resolved after 1 minute. He was doing heavy lifting at work last night of 55 lb boxes. He also reports SRINIVASAN for past few weeks at work and with climbing stairs which is unusual for him. Last episode of chest pain was this morning. He is now chest pain free. Has not taken nitro. Patient states last time he felt this way in 07/2016 Dr. Matos scheduled him for a cardiac cath and he was found to have a blockage which was stented. Patient was treated for acute sinusitis in early 05/2017 with resolution. Now has baseline "smoker's cough" with clear sputum. Had cut down to 1/4 PPD on Chantix but now increased to 1 PPD due to recent stress at home. He denies fever, chills, rhinorrhea, syncope, palpitations, reflux, vomiting, abdominal pain, change in bowel or bladder movements, calf pain, edema, abnormal bleeding. Physical Exam (per Admitting): General Appearance: WD/WN, no apparent distress, + pertinent finding (alert cooperative 46 year old male, no distress) Head: normocephalic, atraumatic Eyes: normal inspection, PERRL, EOMI ENT: hearing grossly normal, pharynx normal Neck: supple, trachea midline Respiratory/Chest: chest non-tender, lungs clear, normal breath sounds, no respiratory distress, no accessory muscle use Cardiovascular: regular rate, rhythm, no murmur Abdomen/GI: normal bowel sounds, non tender, soft Extremities/Musculoskelatal: normal inspection, no calf tenderness, no pedal edema, + pertinent finding (no pain L shoulder ROM) Neurologic/Psych: alert, normal mood/affect, oriented x 3, + pertinent finding (no focal deficit on gross examination) Skin: normal color, warm/dry, no rash (no rash on chest) Hospital Course EXERTIONAL CHEST PAIN R/o ACS; known history of premature CAD s/p multiple stents- 12/25/2010- POBA to diagonal; 12/03/2012- BMS to circumflex; 05/13/2016- PCI/ BMS of 90% ostial RCA at [facility]; 07/08/2016- PCI/ RICKY to right PDA at [facility] [place]; HTN, HL, current smoker CE and ekg unremarkable echo unremarkable s/p cardiac cath and no new findings discharged with home meds HYPERTENSION BP is stable Continue isosorbide, beta og, EMI-I DYSLIPIDEMIA Continue statin TOBACCO ABUSE Counselled for cessation Discharged home Total time spent on discharge = 35MINUTES This includes examination of the patient, discharge planning, medication reconciliation, and communication with other providers. Discharge Instructions Discharge Instructions Procedure Procedure Date: May 23, 2017. Reason for Visit: Chest Discomfort, Sob. Discharge Discharge Date: May 23, 2017. Discharge Diagnosis: Chronic angina pectoris without progression in coronary artery disease Last Recorded Wt (Kilograms): 110.500 Anesthesia Post Anesthesia Instructions: If you have had General Anesthesia or IV Sedation: * Do not drive today. * Resume driving when surgeon permits. * Do not make important decisions or sign legal documents today. * Call surgeon for: 1. Temperature elevations greater than 101 degrees F. 2. Uncontrollable pain. 3. Excessive bleeding. 4. Persistent nausea and vomiting. 5. Medication intolerance (nausea, vomiting or rash). * For nausea and vomiting use only clear liquids such as: tea, soda, bouillon until nausea subsides, then gradually increase diet as tolerated. * If you have any concerns or questions, call your surgeon's office. If physician is unavailable and it is an emergency, call 911 or go to the nearest emergency room. Instructions Activity Recommendations: limitations as noted below Recommended Home Diet: resume previous diet Allergies: Coded Allergies: No Known Allergies (Verified , 05/13/16) Provider Instructions ACTIVITY RECOMMENDATIONS: Excess manipulation of the wrist should be avoided for the next 24-48 hours. * No lifting over 2 pounds (approximately a 1/2 gallon of milk) with the utilized arm for 24 hours. * No strenuous activity such as bowling or tennis for 3 days. * Keep the site of the procedure covered with a bandage for 24 hours. *You may shower the day after the procedure. Do not take a tub bath or submerge the puncture site in water for the next 3 days. *Do not operate any motorized equipment for 3 days. SPECIAL CARE INSTRUCTIONS: The site may be slightly bruised and sore following your procedure. Should any of the following occur, contact the DrChris who performed your procedure. 1. Redness/inflammation, swelling, chills, or fever, or colored drainage at procedure site within 3-7 days after your procedure. 2. Coldness, discoloration, ongoing numbness, severe pain, or swelling. Expect mild tingling of hand and tenderness at the puncture site for up to three days. If this persists beyond three days, or other symptoms develop, notify the Dr. who performed your procedure. BLEEDING: If the procedure site on your wrist begins to bleed, do not panic 1. Place 1 or 2 fingers firmly just slightly above the insertion site to stop the bleeding. You may be able to feel your pulse as you hold pressure. 2. Lift your finger after 5 minutes to see if the bleeding has stopped. 3. Once the bleeding has stopped, gently wipe the wrist area clean with a bandage. * If the bleeding from your wrist does not stop after 10 minutes, or if there is a large amount of bleeding or spurting, call 911 (do not drive yourself to the hospital). SKIN IRRITATION: * You may experience some redness and/or swelling in the area where radiation was administered. If any skin irritation occurs, please contact your family physician. FOLLOW UP VISIT: Keep any scheduled doctor appointments. Follow Up Follow-up with: DR Matos in next months time Marcella Gomez Recommendations: Call your doctor if: * Temperature above 101 degrees * Pain not relieved by pain medicine ordered * There is increased drainage or redness from any incision * You have any unanswered questions or concerns. Your Doctors Instructions noted above were prepared by provider Toby Hurtado. Patient Signature Section:
--- NOTE | 2017-05-24 01:08 | CARDIAC CATH REPORT ---
INDICATIONS: Chest pain consistent with angina, known coronary disease. PROCEDURE: Left heart catheterization, coronary and LV angiography. CARDIAC HISTORY: The patient is a 46-year-old male who carries a history of aggressive premature atherosclerotic coronary disease with prior coronary interventions to the left anterior descending diagonal in the remote past, left circumflex stenting, and most recently in 05/2017 bare-metal stent mid right coronary artery and 08/2017 drug-eluting stent to the distal right coronary artery. The patient presents now with rest chest pain, initially exacerbated by work and heat. He has manifested no signs of congestive heart failure. Echocardiogram demonstrates preserved LV systolic function. Preprocedural stress testing was not performed. ACCESS: Right radial artery. CATHETERS: A 6-[place] long [place] sheath, 5-[place] brachial 3.5, 5-[place] straight pigtail. CONTRAST: Nonionic with 124 mL Visipaque. SEDATION: Start time 1432, end time 1455. MONITOR PERSONNEL: Mere Martínez. SEDATION GIVEN: Versed 1 mg IV, fentanyl 12.5 mcg IV. COMPLICATIONS: None. MEDICATIONS: The patient received local anesthesia at the site of sheath insertion with 1% lidocaine. After central access gained, 5000 units IV heparin was given. After arterial sheath was inserted, intraarterial injection of 250 mcg of nicardipine was given. FLUIDS: 57 mL normal saline. RADIATION EXPOSURE: 3.4 minutes of fluoroscopy, 1468 milligrays, [place] [id number]. RESULTS: CORONARY ANGIOGRAPHY: Coronary anatomy is right dominant with very large right coronary artery: LEFT MAIN: Left main is long and bifurcates to give rise to left anterior descending and left circumflex. There are moderate irregularities in all vasculature including left main with a distal taper of 20% in the left main. LEFT ANTERIOR DESCENDING: Left anterior descending is type 1 in distribution and gives rise to a large septal branch, moderate size first diagonal, at the mid portion trifurcates into a large septal branch, a diagonal branch, and a small LAD main proper which does not reach the apex. Within the left anterior descending, there are diffuse luminal irregularities with a 40% narrowing at the mid vessel. There are diffuse diseases in the diagonal subbranches. LEFT CIRCUMFLEX: Left circumflex is large but nondominant and gives rise to a high marginal branch, a large obtuse marginal branch, and a large posterolateral branch. Within the left circumflex, there is a long area of stenting in its proximal segment which is widely patent without obstruction. The origin of the high marginal branch is narrowed by 30%. There are diffuse luminal irregularities in all vasculature. RIGHT CORONARY ARTERY: The right coronary is very large and dominant in distribution. It gives rise to a right ventricular branch in its mid portion. At the AV groove, it gives rise to a long posterior descending artery which reaches well around the apex, then along the AV groove a small first posterior ventricular branch, then a large terminal bifurcating posterior ventricular branch. Within the right coronary artery, a long area of stenting in its mid portion which is patent with a 30% in-stent restenosis and diffuse luminal irregularities and ectasia in the rest of the vasculature. The distal right coronary artery stent is free of restenosis with excellent blood flow. LEFT VENTRICULAR ANGIOGRAPHY: The left ventricle is nondilated. LV systolic function is 55%. There are no wall motion abnormalities. There is no mitral insufficiency. HEMODYNAMICS: Initial aortic root pressure was 114/77 with a mean at 95. LV pressure was 116/2 with an LVEDP of 10. Following LV angiography, LV pressure was 118/12. On pullback to the aortic root, there is no transaortic valve gradient post-procedure. Final blood pressure is 118/77 with a mean of 95. FINAL IMPRESSIONS: 1. Right coronary anatomy. 2. Diffuse coronary atherosclerosis without significant obstruction. 3. Patent areas of stenting within the left circumflex, mid right coronary artery, and distal right coronary artery. 4. 20% distal left main, 40% mid left anterior descending, and 30% mid right coronary artery are most significant narrowings. 5. Normal left ventricular systolic function without wall motion abnormality. RECOMMENDATIONS: The patient will be continued on medical management with the patient strongly urged to complete tobacco cessation immediately.
== END 2017-05-23 20:30 | disposition home or self-care (01) ==
LOC: C.EDB 14:21 → C.2T 16:10 → ENRESERV 16:48
PROVIDERS: ADMIT Internal Medicine; ATTEND Internal Medicine
DX: R07.9 Chest pain, unspecified (principal); I25.10 Atherosclerotic heart disease of native coronary artery without angina pectoris; E78.5 Hyperlipidemia, unspecified; I10 Essential (primary) hypertension; I25.2 Old myocardial infarction; Z98.52 Vasectomy status; F17.200 Nicotine dependence, unspecified, uncomplicated; Z98.890 Other specified postprocedural states; Z79.899 Other long term (current) drug therapy; Z79.82 Long term (current) use of aspirin; Z79.02 Long term (current) use of antithrombotics/antiplatelets; Z80.9 Family history of malignant neoplasm, unspecified; Z82.49 Family history of ischemic heart disease and other diseases of the circulatory system

== ENCOUNTER 2017-06-04 23:55 | Emergency (ER) | payer OTHER ==
[~2017-06-04] VITALS: Ht 182.9 cm; Wt 112.5 kg
[~2017-06-04 23:55] MED LIST changes: +ALPR-411 PO; -DXY100 PO; +HYDR-5688 PO; -LISI5TAB3 PO; +LSN5 PO; +NTRGSL/4 SL; -OXYC-57 PO; -XPNIN INH
[2017-06-05 00:06] VITALS: TEMP 36.9; Ht 182.9 cm; Wt 112.5 kg
--- NOTE | 2017-06-05 01:24 | EMERGENCY ROOM VISIT NOTE ---
ED Visit Note First contact with patient: 00:11 CHIEF COMPLAINT: Hand injury HISTORY OF PRESENT ILLNESS: This 46-year-old male patient presented to the emergency department ambulatory complaining of an injury to the right hand. The patient states that he got his hand caught in an automatic feeder at work. The patient rates the pain as dull and 3/10. The patient denies any numbness or tingling. The patient does not have injuries to the wrist. The patient has not had a previous fracture to this hand. The patient does note that he had a cardiac catheterization 2.5 weeks ago and had the catheter placed in the right wrist. REVIEW OF SYSTEMS: A 6 system review of systems was completed with positives and pertinent negatives in the HPI. ALLERGIES: No known drug allergies MEDICATIONS: See med list PMH: Heart disease SOCIAL HISTORY: The patient lives locally with family. He is a smoker and admits to occasional alcohol use. PHYSICAL EXAM: Vital Signs: Reviewed Nurse's notes, vital signs stable. GENERAL : This is a 46-year-old male, in no acute distress, but appears to be in pain, well-developed, well-nourished. MUSCULOSKELETAL: There is no deformity of the right hand. There is an abrasion to the right fourth MCP. There is swelling over the areas of the fourth and fifth metacarpals. There is mild soft tissue swelling over the proximal thumb. There is tenderness over the fourth and fifth metacarpals. There is no thenar or hypothenar eminence atrophy. Normal thumb opposition to all fingers. Pole Incisor Operator strength 5/5. There is no laceration. Capillary refill less than 2 seconds. No tenderness of the fingers or wrist. Full range of motion of the wrist. No snuff box tenderness. Radial pulse 2+. NEURO: Alert and oriented to person, place, and time. Normal sensation to light and sharp touch. RADIOGRAPHIC FINDINGS: RIGHT HAND X-RAY: Soft tissue swelling. No acute fractures. EMERGENCY DEPARTMENT COURSE: I examined the patient. An x-ray of the right hand was reviewed by myself and does not show any acute fractures. Conservative measures were discussed. The patient will follow-up with his Workmen's Compensation provider for further evaluation and orthopedic referral if needed. He verbalized understanding of my assessment and treatment plan. The patient was discharged home in good condition. Medication reconciliation: I attest that I have personally reviewed the patient 's current medication list. Blood pressure screening: Patient was found to have normal blood pressure on screening and does not require follow-up. DIAGNOSIS: Right hand injury Problem List Medical Problems: (1) Coronary artery disease Status: Chronic (2) Dyslipidemia Status: Chronic (3) History of kidney stones Status: Chronic (4) Hypertension Status: Chronic (5) Lumbar spinal stenosis Status: Chronic (6) Melanoma Status: Resolved (7) Myocardial infarct Status: Resolved (8) Tobacco use disorder Status: Chronic Surgical Problems: (1) H/O melanoma excision Status: Chronic (2) H/O vasectomy Status: Chronic (3) History of arthroscopy of right shoulder Status: Chronic (4) S/P ACL repair Permanent Comment: left knee Status: Chronic (5) S/p subcutaneous tumor removal Status: Chronic (6) Stented coronary artery Permanent Comment: 12/25/2010- POBA to diagonal; 12/03/2012- BMS to circumflex; - PCI/ BMS of 90% ostial RCA at [facility]; 07/08/2016- PCI/ RICKY to right PDA at [facility] [place] Status: Resolved Current/Historical Medications Scheduled Aspirin (Aspirin), 81 MG PO DAILY Atorvastatin Calcium (Lipitor), 80 MG PO HS Clopidogrel (Plavix), 75 MG PO DAILY Hydrocodone/Acetaminophen 5MG/325MG ([place] 5MG/325MG), 2 TABLETS PO QAM Isosorbide Mononitrate Ext Rel (Imdur Ext Rel), 120 MG PO QAM Lisinopril (Lisinopril), 5 MG PO DAILY Metoprolol Tartrate (Lopressor) (Lopressor), 50 MG PO BID Scheduled PRN Alprazolam (Xanax), 0.5 MG PO TID PRN for Anxiety Nitroglycerin (Nitrostat), 1 TAB SL UD PRN for Chest Pain Allergies Coded Allergies: No Known Allergies (Verified , 06/05/17) Vital Signs Date Time Temp Pulse Resp B/P (MAP) Pulse Ox O2 Delivery O2 Flow Rate FiO2 06/05/17 01:33 70 16 110/76 98 06/05/17 00:06 36.9 66 18 132/88 97 Room Air Departure Information Impression Primary Impression: Injury of right hand Dispostion Home / Self-Care Condition GOOD Referrals Dirk Mcnulty M.D. (PCP) Patient Instructions My [facility] Additional Instructions You have been treated in the Emergency Department for a hand injury. For pain control, you can use the following [id number] medicines (if >12 yo): - Regular strength (325mg/tab) Tylenol (acetaminophen) 2 tabs every 4-6 hours as needed. Do not exceed 12 tablets in a 24 hour period. Avoid taking more than 4 grams (4000 mg) of Tylenol per day. This includes any other sources of acetaminophen you may take on a regular basis. - Regular strength (200 mg/tab) Advil (ibuprofen) 1-2 tabs every 4-6 hours as needed. Do not exceed a dose of 3200 mg per day. If this is a recent injury (<24 hrs), ice can be applied to the area of pain for the first 3 days to help decrease pain and inflammation. Elevate the hand to reduce pain and swelling. Follow-up with the Workmen's Compensation provider within 48 hours for further evaluation. Return to the Emergency Department if your current symptoms worsen despite treatment course outlined above, or if you develop any of the following symptoms : intractable pain despite aforementioned treatment course or new onset of numbness or tingling of the fingers. Problem Qualifiers Primary Impression: Injury of right hand Encounter type: initial encounter Qualified Codes: S69.91XA - Unspecified injury of right wrist, hand and finger(s), initial encounter
[2017-06-05 01:33] VITALS: BP 110/76; PULSE 70; O2SAT 98
--- NOTE | 2017-06-05 06:36 | DIAGNOSTIC IMAGING REPORT ---
RIGHT HAND MIN 3 VIEWS ROUTINE CLINICAL HISTORY: right hand injury Right trauma. Pain. COMPARISON: None. DISCUSSION: The bones and joint spaces appear intact. There is no evidence of fracture, dislocation or bony disease. There is no evidence for soft tissue swelling. IMPRESSION: Negative study. Electronically signed by: Dirk Sibley M.D. 06/05/2017 6:35 AM Dictated Date/Time: 06/05/2017 6:34 AM
== END 2017-06-05 01:34 | disposition home or self-care (01) ==
LOC: C.EDB 23:56 → C.EDA 06-05 01:34
DX: S69.91XA Unspecified injury of right wrist, hand and finger(s), initial encounter (principal); W31.9XXA Contact with unspecified machinery, initial encounter; I51.9 Heart disease, unspecified; I10 Essential (primary) hypertension; E78.5 Hyperlipidemia, unspecified; I25.2 Old myocardial infarction; I25.10 Atherosclerotic heart disease of native coronary artery without angina pectoris; M48.06 Spinal stenosis, lumbar region; F17.200 Nicotine dependence, unspecified, uncomplicated; Z98.61 Coronary angioplasty status; Z87.442 Personal history of urinary calculi; Z98.52 Vasectomy status; Z85.820 Personal history of malignant melanoma of skin; Z96.611 Presence of right artificial shoulder joint; Z79.82 Long term (current) use of aspirin; Z79.899 Other long term (current) drug therapy

== ENCOUNTER 2021-05-06 13:28 | Observation (INO) ==
[2021-05-06] MEDS ORDERED: ASPIRIN CHEW 324 MG PO STA (14:10)
--- NOTE | 2021-05-06 14:13 | Emergency Department Note ---
Impression & Plan Chest pain, High serum chloride ED Provider Note NAME: RA BELTRAN SR AGE: 50 SEX: M : 1970 ARRIVES VIA: Ambulance INFORMANT: Patient ED PROVIDER(S): Carrington Rivas DO CHIEF COMPLAINT: Chest pain HPI: Patient is a 50-year-old male who presents to the ER for chest pain. He got up from his seat and started noticing midsternal chest pressure associated with shortness of breath. He denies any arm or jaw pain. The pain and shortness of breath felt like his previous MIs. He has had 3 previous stents placed on 3 previous occasions. His dad had his first MN in his 30s. Denies any belly pain, nausea, vomiting, or diarrhea. No dysuria, urgency, or frequency. He took 3 nitro and called EMS. Pain resolved with nitro. He was feeling very dizzy and lightheaded and felt very shaky but that has all resolved now. He notes he was drinking alcohol last night. ROS: See above HPI for pertinent positives & negatives. A total of 10 systems reviewed and were otherwise negative. PAST MEDICAL HISTORY:See Below PAST SURGICAL HISTORY:See Below FAMILY HISTORY:See Below SOCIAL HISTORY:See Below HOME MEDICATIONS:See Below ALLERGIES:See Below VITALS:See Below PHYSICAL EXAMINATION: GENERAL: Sitting up in bed, alert, well appearing, well nourished, no distress, non-toxic EYE EXAM: normal conjunctiva. OROPHARYNX: no exudate, no erythema, lips, buccal mucosa, and tongue normal and mucous membranes are moist NECK: supple, no nuchal rigidity, no adenopathy, non-tender LUNGS: Clear to auscultation. Normal chest wall mechanics HEART: no murmurs, S1 normal and S2 normal ABDOMEN: abdomen soft, non-tender, normo-active bowel sounds, no masses, no rebound or guarding. BACK: Back is symmetrical on inspection and there is no deformity, no midline tenderness, no CVA tenderness. SKIN: no rashes and no bruising UPPER EXTREMITIES: upper extremities are grossly normal. LOWER EXTREMITIES: No pitting edema. NEURO EXAM: Normal sensorium, cranial nerves II-XII grossly intact, normal speech, no gross weakness of arms, no gross weakness of legs. MEDICAL DECISION MAKING: Patient is a 50-year-old male who presents the ER for chest pain. He has extensive cardiac history. IV was established blood work obtained. He was ches t pain-free as he took 3 nitro prior to arrival. Labs show no significant leukocytosis or anemia. BMP with slightly elevated chloride. LFTs bilirubin and troponin was negative. Lipase unremarkable. Covid is negative. Chest x- ray unremarkable. EKG was nondiagnostic. He was given aspirin and fluids. He was updated bedside discussed with the hospitalist as he is a high risk. Triage Nursing notes reviewed. Limited review of prior medical records performed Vital Signs: reviewed and remarkable for HTN Differential diagnosis: Differential diagnoses includes but is not limited to acute coronary syndrome, myocardial infarction, pericarditis, pulmonary embolus, aortic dissection, pneumonia, pneumothorax, musculoskeletal, shingles, esophageal. ER treatment provided: See below Diagnostics interpreted by me: ECG: Sinus rhythm rate of 74 Normal axis No PVCs QTC 412 Cardiac Monitoring: An order was placed for continuous cardiac monitoring. The monitor shows a rate of 70 with sinus rhythm. Laboratory studies: As stated above and show below. Imaging studies: Portable AP upright 1 view of the chest shows no focal infiltrate or pneumothorax Consultation(s): none Procedures: none Critical Care: None Past Med/Surg History Medical History (Updated 05/06/21 @ 17:12 by Carrington Rivas DO) Anxiety CAD (coronary artery disease) 2010 (BALLOON ANGIOPLASTY), 2012 (BMS TO CX), 05/2016 (BMS TO RCA), 07/2016 (RICKY TO RIGHT PDA) History of kidney stones Hx of myocardial infarction NSTEMI WITH BALLOON ANGIOPLASTY (2010) Hyperlipidemia Hypertension Obesity Skin cancer (melanoma) Surgical History Hx of anterior cruciate ligament surgery LEFT KNEE Hx of cardiac cath X3 Hx of shoulder surgery RIGHT SHOULDER ARTHROSCOPY Hx of vasectomy Social History Smoking Status: Current every day smoker Tobacco Type: Cigarettes Cigarettes Per Day: 10 X 30 YEARS; Hx Alcohol Use: Yes Alcohol type: beer Hx Substance Use: No Preferred Language: Moldovan Communication Ability: Effective Visual Impairment: No Limitations Beliefs That Will Affect Care: None Current Living Situation: Family Feels Safe at Home: Yes Assistive Devices: Glasses Allergies Allergies Allergy/AdvReac Type Severity Reaction Status Date / Time No Known Allergies Allergy Unknown Verified 05/06/21 15:06 Home Meds Home Medications Medication Instructions Recorded Confirmed clopidogrel 75 mg PO DAILY #0 12/22/09 05/06/21 metoprolol tartrate 50 mg PO BID #0 12/22/09 05/06/21 aspirin 81 mg PO DAILY #0 01/02/14 05/06/21 atorvastatin 80 mg PO HS #0 tab 01/02/14 05/06/21 isosorbide mononitrate 120 mg PO QAM #0 tab 12/07/15 05/06/21 alprazolam 0.5 mg PO TID PRN #0 05/22/17 05/06/21 lisinopril 5 mg PO DAILY #0 05/22/17 05/06/21 nitroglycerin 0.4 mg SUBLINGUAL UD PRN #100 tab 05/22/17 05/06/21 Results & Data (ED) Vital Signs Vital Signs - 24 hr 05/06/21 13:29 05/06/21 13:32 05/06/21 13:38 Temperature 37 C Temperature Source Oral Pulse Rate 75 72 75 Pulse Rate from SpO2 Sensor 74 73 Pulse Rhythm Respiratory Rate 17 22 16 Blood Pressure 157/88 H 157/88 H Blood Pressure Mean 111 111 Pulse Oximetry 94 94 94 Oxygen Delivery Method Room Air Sepsis Recent Fever Within 48 Hours No Sepsis New/Unexplained Change in Mental Status No Sepsis Action Taken by Nursing No Action Required 05/06/21 13:40 05/06/21 13:50 05/06/21 14:00 Temperature Temperature Source Pulse Rate 76 79 78 Pulse Rate from SpO2 Sensor 79 77 Pulse Rhythm Respiratory Rate 17 21 15 Blood Pressure 136/76 Blood Pressure Mean 96 Pulse Oximetry 94 94 Oxygen Delivery Method Sepsis Recent Fever Within 48 Hours Sepsis New/Unexplained Change in Mental Status Sepsis Action Taken by Nursing 05/06/21 14:01 05/06/21 14:10 05/06/21 14:20 Temperature Temperature Source Pulse Rate 77 73 73 Pulse Rate from SpO2 Sensor 78 76 73 Pulse Rhythm Regular Respiratory Rate 16 17 22 Blood Pressure Blood Pressure Mean Pulse Oximetry 93 96 94 Oxygen Delivery Method Room Air Sepsis Recent Fever Within 48 Hours Sepsis New/Unexplained Change in Mental Status Sepsis Action Taken by Nursing 05/06/21 14:30 05/06/21 14:31 05/06/21 14:40 Temperature Temperature Source Pulse Rate 71 74 72 Pulse Rate from SpO2 Sensor 70 73 71 Pulse Rhythm Respiratory Rate 20 16 17 Blood Pressure 135/79 Blood Pressure Mean 97 Pulse Oximetry 95 94 96 Oxygen Delivery Method Sepsis Recent Fever Within 48 Hours Sepsis New/Unexplained Change in Mental Status Sepsis Action Taken by Nursing 05/06/21 14:50 05/06/21 15:00 05/06/21 15:01 Temperature Temperature Source Pulse Rate 67 68 68 Pulse Rate from SpO2 Sensor 66 69 67 Pulse Rhythm Respiratory Rate 19 18 17 Blood Pressure 152/83 H Blood Pressure Mean 106 Pulse Oximetry 95 96 96 Oxygen Delivery Method Sepsis Recent Fever Within 48 Hours Sepsis New/Unexplained Change in Mental Status Sepsis Action Taken by Nursing 05/06/21 15:10 05/06/21 15:20 05/06/21 15:30 Temperature Temperature Source Pulse Rate 68 66 63 Pulse Rate from SpO2 Sensor 68 65 63 Pulse Rhythm Respiratory Rate 23 20 18 Blood Pressure 136/85 Blood Pressure Mean 102 Pulse Oximetry 94 95 95 Oxygen Delivery Method Sepsis Recent Fever Within 48 Hours Sepsis New/Unexplained Change in Mental Status Sepsis Action Taken by Nursing 05/06/21 15:31 05/06/21 15:40 05/06/21 15:50 Temperature Temperature Source Pulse Rate 65 65 66 Pulse Rate from SpO2 Sensor 65 65 66 Pulse Rhythm Respiratory Rate 20 21 17 Blood Pressure Blood Pressure Mean Pulse Oximetry 94 94 95 Oxygen Delivery Method Sepsis Recent Fever Within 48 Hours Sepsis New/Unexplained Change in Mental Status Sepsis Action Taken by Nursing 05/06/21 16:00 05/06/21 16:01 05/06/21 16:10 Temperature Temperature Source Pulse Rate 62 61 59 L Pulse Rate from SpO2 Sensor 62 60 61 Pulse Rhythm Respiratory Rate 22 13 18 Blood Pressure 133/84 Blood Pressure Mean 100 Pulse Oximetry 95 96 95 Oxygen Delivery Method Sepsis Recent Fever Within 48 Hours Sepsis New/Unexplained Change in Mental Status Sepsis Action Taken by Nursing 05/06/21 16:20 05/06/21 16:30 05/06/21 16:31 Temperature Temperature Source Pulse Rate 68 62 64 Pulse Rate from SpO2 Sensor 68 62 65 Pulse Rhythm Respiratory Rate 16 17 19 Blood Pressure 144/84 H Blood Pressure Mean 104 Pulse Oximetry 96 93 94 Oxygen Delivery Method Sepsis Recent Fever Within 48 Hours Sepsis New/Unexplained Change in Mental Status Sepsis Action Taken by Nursing 05/06/21 16:40 05/06/21 16:56 Temperature Temperature Source Pulse Rate 63 68 Pulse Rate from SpO2 Sensor 63 Pulse Rhythm Respiratory Rate 17 22 Blood Pressure Blood Pressure Mean Pulse Oximetry 95 Oxygen Delivery Method Sepsis Recent Fever Within 48 Hours Sepsis New/Unexplained Change in Mental Status Sepsis Action Taken by Nursing Laboratory Data Result diagrams: 05/06/21 13:45 05/06/21 13:45 Lab Results 05/06/21 05/06/21 05/06/21 Range/Units 13:45 13:45 13:45 WBC 10.84 H (4.8-10.8) K/uL RBC 4.85 (4.7-6.1) M/uL Hgb 15.9 (14.0-18.0) g/dL Hct 44.7 (42-52) % MCV 92.2 (80-100) fL MCH 32.8 (25-34) pg MCHC 35.6 (32-36) g/dL RDW Std Deviation 45.9 (36.4-46.3) fL RDW Coeff of Sierra 13.5 (11.5-14.5) % Plt Count 171 (130-400) K/uL MPV 10.6 H (7.4-10.4) fL Immature Gran % (Auto) 0.2 % Neut % (Auto) 78.3 % Lymph % (Auto) 11.5 % Liberty % (Auto) 9.2 % Eos % (Auto) 0.6 % Baso % (Auto) 0.2 % Neut # (Auto) 8.48 H (1.4-6.5) K/uL Lymph # (Auto) 1.25 (1.2-3.4) K/uL Liberty # (Auto) 1.00 H (0.11-0.59) K/uL Eos # (Auto) 0.07 (0-0.5) K/uL Baso # (Auto) 0.02 (0-0.2) K/uL Immature Gran # (Auto) 0.02 (0.00-0.02) K/uL APTT 25.9 (21.0-31.0) Seconds PTT Ratio 1.0 Sodium 141 (136-145) mmol/L Potassium 4.1 (3.5-5.1) mmol/L Chloride 108 H (98-107) mmol/L Carbon Dioxide 26 (21-32) mmol/L Anion Gap 7.0 (3-11) BUN 12 (7-18) mg/dl Creatinine 0.97 (0.6-1.4) mg/dl Est Cr Clr Drug Dosing 120.9 ml/min Est GFR ( Amer) 106.6 ml/min Est GFR (Non-Af Amer) 91.9 ml/min BUN/Creatinine Ratio 12.9 (10-20) Glucose 117 H (70-99) mg/dl Calcium 8.5 (8.5-10.1) mg/dl Total Bilirubin 0.3 (0.2-1) mg/dl AST 24 (15-37) U/L ALT 35 (12-78) U/L Alkaline Phosphatase 65 (45-117) U/L Troponin I < 0.015 (0-0.045) ng/ml Total Protein 7.2 (6.4-8.2) gm/dl Albumin 3.5 (3.4-5.0) gm/dl Globulin 3.7 (2.5-4.0) gm/dl Albumin/Globulin Ratio 0.9 (0.9-2) Lipase 105 (73-393) U/L COVID-19 Eval Order SARS-CoV-2 (PCR) (Negative) 05/06/21 05/06/21 Range/Units 15:00 15:00 WBC (4.8-10.8) K/uL RBC (4.7-6.1) M/uL Hgb (14.0-18.0) g/dL Hct (42-52) % MCV (80-100) fL MCH (25-34) pg MCHC (32-36) g/dL RDW Std Deviation (36.4-46.3) fL RDW Coeff of Sierra (11.5-14.5) % Plt Count (130-400) K/uL MPV (7.4-10.4) fL Immature Gran % (Auto) % Neut % (Auto) % Lymph % (Auto) % Liberty % (Auto) % Eos % (Auto) % Baso % (Auto) % Neut # (Auto) (1.4-6.5) K/uL Lymph # (Auto) (1.2-3.4) K/uL Liberty # (Auto) (0.11-0.59) K/uL Eos # (Auto) (0-0.5) K/uL Baso # (Auto) (0-0.2) K/uL Immature Gran # (Auto) (0.00-0.02) K/uL APTT (21.0-31.0) Seconds PTT Ratio Sodium (136-145) mmol/L Potassium (3.5-5.1) mmol/L Chloride (98-107) mmol/L Carbon Dioxide (21-32) mmol/L Anion Gap (3-11) BUN (7-18) mg/dl Creatinine (0.6-1.4) mg/dl Est Cr Clr Drug Dosing ml/min Est GFR ( Amer) ml/min Est GFR (Non-Af Amer) ml/min BUN/Creatinine Ratio (10-20) Glucose (70-99) mg/dl Calcium (8.5-10.1) mg/dl Total Bilirubin (0.2-1) mg/dl AST (15-37) U/L ALT (12-78) U/L Alkaline Phosphatase (45-117) U/L Troponin I (0-0.045) ng/ml Total Protein (6.4-8.2) gm/dl Albumin (3.4-5.0) gm/dl Globulin (2.5-4.0) gm/dl Albumin/Globulin Ratio (0.9-2) Lipase (73-393) U/L COVID-19 Eval Order Covid19 at [facility] SARS-CoV-2 (PCR) NEGATIVE (Negative) Administered Medications Discontinued Medications Aspirin (Aspirin Chew 324 Mg) 243 mg PO NOW STA Stop: 05/06/21 14:11 Last Admin: 05/06/21 14:26 Dose: 243 mg Documented by: [id number] Sodium Chloride (Nss 1000ml) 1,000 mls @ 999 mls/hr IV .Q1H1M ONE Stop: 05/06/21 15:48 Last Infusion: 05/06/21 16:00 Dose: 999 mls/hr Documented by: [id number] Admin: 05/06/21 14:52 Dose: 999 mls/hr Documented by: [id number] Imaging Data Radiologist's Impression: Chest X-Ray 05/06/21 14:10 XR chest 1V portable CLINICAL HISTORY: Chest Pain COMPARISON STUDY: Chest radiograph December 18, 2018. FINDINGS: Lung volumes are normal. Lungs are clear. There is no pneumothorax or pleural effusion. Cardiac size is normal. Mediastinal contours are normal. There is no evidence for pulmonary edema. IMPRESSION: No acute cardiopulmonary findings. ACT 112: Negative or not required by law. Electronically signed by: Tray Morejon M.D. 05/06/2021 2:48 PM Discharge Plan Visit Data Chief Complaint: Vertigo Stated Complaint: dizzy weak SOB ED Provider: Carrington Rivas Discharge Problem: Chest pain, High serum chloride Forms Stand Alone Forms: My [facility] [place] [facility] Prescriptions Prescriptions: No Action clopidogrel 75 mg Tablet 75 mg PO DAILY Qty: 0 RF: 0 metoprolol tartrate 50 mg Tablet 50 mg PO BID Qty: 0 RF: 0 aspirin 81 mg Tablet,Delayed Release (Dr/Ec) 81 mg PO DAILY Qty: 0 RF: 0 atorvastatin 80 mg Tablet 80 mg PO HS Qty: 0 RF: 0 isosorbide mononitrate 120 mg Tablet Extended Release 24 Hr 120 mg PO QAM Qty: 0 RF: 0 alprazolam 0.5 mg Tablet 0.5 mg PO TID PRN (Reason: Anxiety) Qty: 0 RF: 0 nitroglycerin 0.4 mg Tablet, Sublingual 0.4 mg sublingual UD PRN (Reason: Chest Pain) Qty: 100 RF: 3 lisinopril 5 mg Tablet 5 mg PO DAILY Qty: 0 RF: 0 Discharge Problem: Chest pain Qualifiers: Chest pain type: unspecified Qualified Code(s): R07.9 - Chest pain, unspecified
[2021-05-06 14:18] LABS: Basophils # (auto) 0.02 K/uL (0-0.2); Basophils % (auto) 0.2 %; Eosinophils # (auto) 0.07 K/uL (0-0.5); Eosinophils % (auto) 0.6 %; Hematocrit (blood only) 44.7 % (42-52); Hemoglobin 15.9 g/dL (14.0-18.0); Immature Granulocytes # (auto) 0.02 K/uL (0.00-0.02); Immature Granulocytes % (auto) 0.2 %; Lymphocytes # (auto) 1.25 K/uL (1.2-3.4); Lymphocytes % (auto) 11.5 %; Mean Corpuscular Hemoglobin 32.8 pg (25-34); Mean Corpuscular Hgb Conc 35.6 g/dL (32-36); Mean Corpuscular Volume 92.2 fL (80-100); Mean Platelet Volume 10.6 fL (7.4-10.4); Monocytes % (auto) 9.2 %; Neutrophils # (auto) 8.48 K/uL (1.4-6.5); Neutrophils % (auto) 78.3 %; Platelet Count 171 K/uL (130-400); RDW Coefficient of Variation 13.5 % (11.5-14.5); RDW Standard Deviation 45.9 fL (36.4-46.3); Red Blood Count 4.85 M/uL (4.7-6.1); White Blood Count 10.84 K/uL (4.8-10.8)
[2021-05-06 14:25] LABS: Alanine Aminotransferase 35 U/L (12-78); Albumin Level 3.5 gm/dl (3.4-5.0); Aspartate Aminotransferase 24 U/L (15-37); BUN Creatinine Ratio 12.9 (10-20); Blood Urea Nitrogen 12 mg/dl (7-18); Calcium 8.5 mg/dl (8.5-10.1); Carbon Dioxide 26 mmol/L (21-32); Chloride 108 mmol/L (98-107); Creatinine Clr Calc Pharmacy 120.9 ml/min; Est GFR (African American) 106.6 ml/min; Est GFR (Non-African American) 91.9 ml/min; Glucose 117 mg/dl (70-99); Lipase 105 U/L (73-393); Potassium 4.1 mmol/L (3.5-5.1); Sodium 141 mmol/L (136-145)
[2021-05-06 14:30] LABS: Albumin Globulin Ratio 0.9 (0.9-2); Alkaline Phosphatase 65 U/L (45-117); Bilirubin,Total 0.3 mg/dl (0.2-1); Globulin 3.7 gm/dl (2.5-4.0); Total Protein 7.2 gm/dl (6.4-8.2); Troponin I < 0.015 ng/ml (0-0.045)
[2021-05-06 14:36] LABS: Partial Thromboplastin Time 25.9 Seconds (21.0-31.0)
[2021-05-06] MEDS ORDERED: SODIUM CHLORIDE 0.9% 1000ML 1,000 ML IV ONE (14:48)
--- NOTE | 2021-05-06 14:49 | XRay Report ---
XR chest 1V portable CLINICAL HISTORY: Chest Pain COMPARISON STUDY: Chest radiograph December 18, 2018. FINDINGS: Lung volumes are normal. Lungs are clear. There is no pneumothorax or pleural effusion. Car diac size is normal. Mediastinal contours are normal. There is no evidence for pulmonary edema. IMPRESSION: No acute cardiopulmonary findings. ACT 112: Negative or not required by law. Electronically signed by: Tray Morejon M.D. 05/06/2021 2:48 PM
--- NOTE | 2021-05-06 16:56 | History & Physical Report ---
Date of Service May 06, 2021 Assessment & Plan (1) Unstable angina: - Admit to tele for observation for r/o -Patient developed cp with minimal ADLS, walking in kitchen, became sob/weak/chest pressure. He took 3 nitro tablets prior to presentation to the ER via EMS, currently reports having chest tightness, no chest pressure or pain, no further having shortness of breath. Reports having a slight headache currently likely secondary to nitroglycerin. - Trend cardiac biomarkers, initial set was negative - EKG reviewed as above -not appear to have ST wave changes compared to previous - Check 2 D echo - make n.p.o. after midnight in case needs for cardiac cath -Consult cardiology-discussed with Dr. Collins, no need for heparin drip at this time with no EKG changes, continue Plavix and aspirin -Continue metoprolol, lisinopril, atorvastatin - PT/OT consulted (2) CAD (coronary artery disease): - Significant Stenting history: NSTEMI with balloon angioplasty to the diagonal branch of the LAD on 12/25/2010 Bare-metal stent to the circumflex on 12/03/2012 Recurrent angina on 05/13/16 -bare-metal stent of a 90% ostial right RCA at [facility], [place] [facility] [place] He had repeat cardiac cath in May 2017 which showed stable CAD. Repeat cath in May 2020 for diagnostic purposes showed moderate CAD with widely patent stents - Significant fam hx: father who had MT in his 40s and subsequently had heart transplant due to severe ischemic cardiomyopathy, and due to metastatic cancer at age 62 - Cont statin (3) Hypertension: - Cont antihypertensives as above (4) Dyslipidemia: -Continue atorvastatin 80 mg at bedtime (5) Tobacco use disorder: -Counseled on cessation of smoking at bedside, he smoked 4 to 5 cigarettes this morning, has smoked 1-1.5 PPD x30 years (6) Obesity (BMI 30.0-34.9): -BMI of 33.8, diet and exercise to be encouraged throughout hospital stay DVT PPx: - teds, plavix and aspirin CODE: Full Dispo: From home, likely to remain in the hospital x 1-2 days History of Present Illness Primary Care Provider: Dirk Mcnulty MD This is a 50-year-old male with PMHx with significant CAD, HTN, HLD, and chronic tobacco use, who presents to the ER with substernal chest pain and associated shortness of breath. This started at 11:30am when he got up from eating breakfast and walked to the kitchen sink carrying a plate. He felt weak in both arms, and became shakey. Denies radiation of the pain, abd pain, nausea, or vomiting. At home he took 3 nitro tablets over a 35 minute timeframe at home, and then called EMS. Currently feels chest tightness but denies feeling same way he did earlier. He reports that this felt similar to previous episodes of CAD. He was supposed to work a double shift tonight and admits to feeling a bit anxious about this. He uses xanax for anxiety prn, and would like one now. Stenting history: NSTEMI with balloon angioplasty to the diagonal branch of the LAD on 12/25/2010 Bare-metal stent to the circumflex on 12/03/2012 Recurrent angina on 05/13/16 -bare-metal stent of a 90% ostial right RCA at [facility] PCI, [place] [facility] [place] He had repeat cardiac cath in May 2017 which showed stable CAD. Family history: He has significant family history of CAD with his father who had MT in his 40s and subsequently had heart transplant due to severe ischemic cardiomyopathy, and due to metastatic cancer at age 62. Allergies Allergy/AdvReac Type Severity Reaction Status Date / Time No Known Allergies Allergy Unknown Verified 05/06/21 15:06 Home Medications Medication Instructions Recorded Confirmed Type clopidogrel 75 mg PO DAILY #0 12/22/09 05/06/21 History metoprolol tartrate 50 mg PO BID #0 12/22/09 05/06/21 History aspirin 81 mg PO DAILY #0 01/02/14 05/06/21 History atorvastatin 80 mg PO HS #0 tab 01/02/14 05/06/21 History isosorbide mononitrate 120 mg PO QAM #0 tab 12/07/15 05/06/21 History alprazolam 0.5 mg PO TID PRN #0 05/22/17 05/06/21 History lisinopril 5 mg PO DAILY #0 05/22/17 05/06/21 History nitroglycerin 0.4 mg SUBLINGUAL UD PRN #100 tab 05/22/17 05/06/21 History Past Med/Surg History Medical History (Updated 05/06/21 @ 17:48 by Bhargavi Goodman PA-C) Anxiety CAD (coronary artery disease) 2010 (BALLOON ANGIOPLASTY), 2012 (BMS TO CX), 05/2016 (BMS TO RCA), 07/2016 (RICKY TO RIGHT PDA) History of kidney stones Hx of myocardial infarction NSTEMI WITH BALLOON ANGIOPLASTY (2010) Hyperlipidemia Hypertension Obesity Skin cancer (melanoma) Surgical History Hx of anterior cruciate ligament surgery LEFT KNEE Hx of cardiac cath X3 Hx of shoulder surgery RIGHT SHOULDER ARTHROSCOPY Hx of vasectomy Social History Smoking Status: Current every day smoker Tobacco Type: Cigarettes Cigarettes Per Day: 10 X 30 YEARS; Hx Alcohol Use: Yes Alcohol type: beer Hx Substance Use: No Preferred Language: Cambodian Communication Ability: Effective Visual Impairment: No Limitations Beliefs That Will Affect Care: None Current Living Situation: Family Feels Safe at Home: Yes Assistive Devices: Glasses Review of Systems Review of Systems: Constitutional: No fever, sweats or chills Eyes: No diplopia, no worsening or blurred vision ENT: normal hearing, no trouble swallowing Respiratory: No cough, sputum, dyspnea at rest or on exertion Cardiovascular: As per HPI. Currently no chest pain, or palpitations. Abdomen: No pain, nausea, vomiting, diarrhea or constipation Musculoskeletal: No joint pain, calf pain, swelling Neurologic: No weakness, numbness/tingling, or balance problems Psychiatric: +anxiety, no depression Skin: No rash or itch Physical Exam Physical Exam: General: awake, alert, no apparent distress Head: Normocephalic, atraumatic ENT: PERRL, EOMI, no pharyngeal exudate, mucous membranes moist Chest: Diminished slightly and faint wheeze, on room air. Cardiac: Regular rate and rhythm, no murmur, no JVD, normal peripheral pulses, good capillary refill Abdominal: NABS x 4 quadrants, soft, + small umbilical hernia, nondistended, nontender to palpation, no rebound or guarding Extremities: Normal inspection, no peripheral edema or erythema, calfs nontender to palpation Psych: Normal mood and affect Neuro: AAO x 3, strength intact bilaterally and rated 5/5, no motor deficits, speech is clear, no peripheral sensory deficits Results & Data Results & Data ([facility]) Vital Signs (Past 12 Hours) Vital Signs Temp Pulse Resp BP Pulse Ox 05/06/21 14:10 78 18 98 05/06/21 13:50 79 21 94 05/06/21 13:40 76 17 05/06/21 13:38 37 C 75 16 157/88 H 94 05/06/21 13:32 72 22 94 05/06/21 13:29 75 17 157/88 H 94 Diagnostic Findings Chest X-Ray 05/06/21 14:10 XR chest 1V portable CLINICAL HISTORY: Chest Pain COMPARISON STUDY: Chest radiograph December 18, 2018. FINDINGS: Lung volumes are normal. Lungs are clear. There is no pneumothorax or pleural effusion. Cardiac size is normal. Mediastinal contours are normal. There is no evidence for pulmonary edema. IMPRESSION: No acute cardiopulmonary findings. ACT 112: Negative or not required by law. Electronically signed by: Tray Morejon M.D. 05/06/2021 2:48 PM ECG Additional Comments: 06-MAY-2021 13:34:03 [facility]-EDSTAT ROUTINE RETRIEVAL Normal sinus rhythm Normal ECG When compared with ECG of 23-MAY-2017 06:35, No significant change was found 25mm/s 10mm/mV 150Hz 9.0.9 12SL 241 KELIN: 15 Referred by: SELF Unconfirmed Vent. rate 74 BPM ME interval 172 ms QRS duration 88 ms QT/QTc 372/412 ms Code Status & VTE Plan Code Status Full code - discussed with the pt at bedside Supervising Physician Co-Signing Physician Notes Attending addendum: The patient was seen and examined in emergency room in presence of the He has significant cardiac history including NSTEMI and status post angioplasty and also bare-metal stent placement in coronary arteries as mentioned in H&P Complaint to have exertional chest pain with dizziness, chest tightness, shortness of breath and sweating in the morning Took 3 nitro to relief the pain He remains reasonably stable in the emergency room On examination Lying in bed comfortably but remains very anxious Hemodynamically stable now though initially the blood pressure is high at systolic 190s at home Chest-clear to auscultate bilaterally Heart-S1, S2. Regular no murmur appreciated Abdomen-soft, nontender, bowel sounds present Extremities-no edema [employer]EL[employer]IST-alert, awake and oriented x3. No focal sensory and motor deficit appreciated Admission labs, EKG and imaging studies reviewed Admitted with chest pain with significant history of CAD Initial troponin and EKG did not show any significant change-we will get serial cardiac enzymes and echo and cardiology evaluation Possible stress test and/or even cardiac cath tomorrow morning if warranted Not for any heparin at this time and will continue current medications including aspirin and Plavix Agree with assessment and plan as outlined above by Bhargavi shaw
[2021-05-06] MEDS ORDERED: ALPRAZolam 0.5 MG TABLET PO PRN (17:40)
[2021-05-06] MEDS ORDERED: ACETAMINOPHEN 325 MG TAB PO PRN (18:17)
[2021-05-06] MEDS ORDERED: ONDANSETRON INJ 2 MG/ML 2 ML VIAL IV PRN (18:17)
[2021-05-06] MEDS ORDERED: NITROGLYCERIN SL 0.4 MG/TAB TAB SL PRN (18:17)
[2021-05-06] MEDS: NICOTINE 21 MG/24 HR TDSY TD SCH (20:54)
[2021-05-06] MEDS: METOPROLOL TARTRATE 50 MG TAB PO SCH (20:56)
[2021-05-06] MEDS ORDERED: ATORVASTATIN 40 MG TAB PO SCH (21:00)
[2021-05-07 04:54] LABS: Hematocrit (blood only) 44.3 % (42-52); Hemoglobin 15.5 g/dL (14.0-18.0); Mean Corpuscular Hemoglobin 31.8 pg (25-34); Mean Corpuscular Volume 90.8 fL (80-100); Mean Platelet Volume 10.3 fL (7.4-10.4); Platelet Count 153 K/uL (130-400); RDW Coefficient of Variation 13.6 % (11.5-14.5); Red Blood Count 4.88 M/uL (4.7-6.1); White Blood Count 9.37 K/uL (4.8-10.8)
[2021-05-07 05:11] LABS: Albumin Level 3.2 gm/dl (3.4-5.0); Creatinine Clr Calc Pharmacy 152.3 ml/min; Est GFR (African American) 124.4 ml/min; Est GFR (Non-African American) 107.3 ml/min; Magnesium 2.2 mg/dl (1.8-2.4)
[2021-05-07 05:14] LABS: Albumin Globulin Ratio 0.9 (0.9-2); Bilirubin,Total 0.4 mg/dl (0.2-1); Globulin 3.6 gm/dl (2.5-4.0); Phosphorus 2.4 mg/dl (2.5-4.9); Total Protein 6.8 gm/dl (6.4-8.2)
[2021-05-07] MEDS: METOPROLOL TARTRATE 50 MG TAB PO SCH (07:51)
[2021-05-07] MEDS: NICOTINE 21 MG/24 HR TDSY TD SCH (07:52)
--- NOTE | 2021-05-07 08:09 | Cardiology Consultation ---
Date of Consultation May 07, 2021 Assessment & Plan (1) Lightheadedness: (2) Chest heaviness: (3) CAD (coronary artery disease): (4) Hypertension: Patient with sudden onset lightheadedness/SOB/heaviness/weakness yesterday morning when standing in his kitchen. So far, EKG has remained without ischemic changes. Troponin negative x3. He remains pain free and without recurrent symptoms this morning. He does have a significant history of premature CAD with multiple stents in the past. Last cardiac cath in May 2020 with moderate CAD and patent stents. No intervention performed. At this time, will proceed with a dobutamine stress echo to assess LV function, and r/o inducible ischemia and recurrent symptoms. Due to orthopedic limitations, patient does not feel he would adequately ambulate on a treadmill, therefore dobutamine stress test is recommended. His symptoms may also have been a vasovagal reaction after standing for prolonged period of time at kitchen sink. His blood pressure was initially elevated but trending down this morning on [employer] home medications. Case discussed with Dr. Collins. Further recommendations pending review of dobutamine stress echo. Supervising Physician Co-Signing Physician Notes I have seen and evaluated the patient. I have reviewed the medical record and discussed the case with Delvin. This morning we performed a dobutamine stress echocardiogram on the patient that was negative for ischemia. He did have a little bit of chest discomfort at peak heart rate during the dobutamine infusion but it resolved after the infusion was stopped and the patient was given metoprolol. The patient had a heart cath in May which revealed all his stents to be open and for him to have nonobstructive coronary artery disease. I think it is reasonable to send the patient home at this point for outpatient follow- up. History of Present Illness Reason for Consultation: Chest pain; history of CAD Requesting Physician: Velma Goodman PA-C Attending Physician: Dr. Collins History of Present Illness Patient is a complex 50 year old male known to [facility] cardiology, following with Dr. Matos for history of complex premature CAD. History includes: 1. Cardiac cath May 2020 at [facility] - stable mild to moderate CAD with widely patent stents. 2. Aggressive premature onset, diffuse coronary heart disease status post non ST segment elevation myocardial infarction with plain balloon angioplasty to the diagonal branch of the [place] 12/25/2010 3. Bare metal stent to the [id number]/03/2013 4. Recurrent unstable angina 05/13/2016 prompting bare metal stenting of a 90% ostial right coronary artery, performed at [facility] unstable angina 5. PCI, drug-eluting stent to theright PDA,[facility] 07/08/2016 6. Stable CAD on repeat cardiac catheterization May, 7. Family history of aggressive atherosclerosis with his father having had myocardial infarction in his40'sand subsequently had heart transplant due to severe ischemic cardiomyopathy, then due to metastatic cancer at age 64 8. Hypertension 9. Dyslipidemia 10. Cigarette smoking, ongoing despite multiple attempts at cessation Patient was in normal state of health, until yesterday when he developed sudden onset weakness, lightheadedness, diaphoresis and mild heaviness across his chest radiating down both of his arms with weakness of his arms. Patient was standing in his kitchen washing dishes when symptoms occurred. He sat down. Family member checked vitals and his BP was significantly elevated in the 190's. He had taken his meds 1 hour prior to symptoms onset. He had 2 cups of coffee and had just eaten breakfast. he is not diabetic. He took 1 SL nitro without relief and EMS was summoned. He took 3 SL nitro and no change in his symptoms. He was brought to ER for evaluation. EKG on arrival demonstrated normal sinus rhythm without acute changes. Cardiac enzymes are unremarkable x3. Symptoms resolved last evening and without recurrence. Patient reports compliance with medications. He denies recent or frequent use of sublingual nitro in the last 6 months. He remains active on a daily basis but does not exercise due to back pain. He denies recent chest pain with normal daily activities. He notes chronic cough due to chronic tobacco abuse. No fever or chills. No orthopnea, PND, lower extremity edema. Currently, at the time of consult, patient feeling well and resting comfortably in bed. He denies chest pain or chest heaviness since last evening. His symptoms resolved with Alprazolam last evening. He denies acute complaints at this time, but is not sure what occurred yesterday. This felt "different" than his prior coronary "events". Allergies Allergy/AdvReac Type Severity Reaction Status Date / Time No Known Allergies Allergy Unknown Verified 05/06/21 15:06 Home Medications Medication Instructions Recorded Confirmed Type clopidogrel 75 mg PO DAILY #0 12/22/09 05/06/21 History metoprolol tartrate 50 mg PO BID #0 12/22/09 05/06/21 History aspirin 81 mg PO DAILY #0 01/02/14 05/06/21 History atorvastatin 80 mg PO HS #0 tab 01/02/14 05/06/21 History isosorbide mononitrate 120 mg PO QAM #0 tab 12/07/15 05/06/21 History alprazolam 0.5 mg PO TID PRN #0 05/22/17 05/06/21 History lisinopril 5 mg PO DAILY #0 05/22/17 05/06/21 History nitroglycerin 0.4 mg SUBLINGUAL UD PRN #100 tab 05/22/17 05/06/21 History Patient History Medical History (Updated 05/07/21 @ 10:00 by Niesha Hargrove PA-C) Anxiety CAD (coronary artery disease) 2010 (BALLOON ANGIOPLASTY), 2012 (BMS TO CX), 05/2016 (BMS TO RCA), 07/2016 (RICKY TO RIGHT PDA) History of kidney stones Hx of myocardial infarction NSTEMI WITH BALLOON ANGIOPLASTY (2010) Hyperlipidemia Hypertension Obesity Skin cancer (melanoma) Surgical History Hx of anterior cruciate ligament surgery LEFT KNEE Hx of cardiac cath X3 Hx of shoulder surgery RIGHT SHOULDER ARTHROSCOPY Hx of vasectomy Social History Smoking Status: Current every day smoker Tobacco Type: Cigarettes Cigarettes Per Day: pack - pack and a hlaf; Do You Dip or Chew Tobacco: No; Hx Alcohol Use: Yes Alcohol type: beer Hx Substance Use: No Preferred Language: Nauruan Communication Ability: Effective Visual Impairment: No Limitations Title Specialist Required: No Beliefs That Will Affect Care: None Current Living Situation: Spouse Feels Safe at Home: Yes Safety Concerns: Feels Safe At This Time Assistive Devices: Glasses Review of Systems Review of Systems: All systems reviewed & are unremarkable except as noted in HPI & below Physical Exam Constitutional: WD/WN, vitals as above well developed and well nourished; no acute distress Eyes: PERRL, conjunctivae normal, anicteric sclerae Neck: trachea midline, no thyromegaly normal visual inspection Respiratory: normal respiratory effort, lungs clear to auscultation Cardiovascular: RRR, no murmur, no edema Vessels: no JVD Gastrointestinal (Abdomen): normal bowel sounds, soft, nontender, no h epatosplenomegaly Musculoskeletal: no cyanosis or clubbing, extremities motor strength 5/5 Skin: no rashes, warm and dry Neurologic: PERRL, EOMI, accommodation nl, no face palsy, no dysarthria Psychiatric: A+Ox3, euthymic affect Results & Data ([facility]) Vital Signs (Past 12 Hours) Vital Signs Temp Pulse Pulse Resp BP BP Pulse Ox 05/07/21 03:54 36.9 C 60 16 116/72 93 05/06/21 23:59 36.9 C 62 20 131/71 93 05/06/21 23:06 36.9 C 62 20 131/71 05/06/21 22:20 60 Laboratory Results 05/07/21 05/07/21 05/07/21 Range/Units 04:36 04:36 04:36 WBC 9.37 (4.8-10.8) K/uL RBC 4.88 (4.7-6.1) M/uL Hgb 15.5 (14.0-18.0) g/dL Hct 44.3 (42-52) % MCV 90.8 (80-100) fL MCH 31.8 (25-34) pg MCHC 35.0 (32-36) g/dL RDW Std Deviation 45.0 (36.4-46.3) fL RDW Coeff of [place] 13.6 (11.5-14.5) % Plt Count 153 (130-400) K/uL MPV 10.3 (7.4-10.4) fL Immature Gran % (Auto) % Neut % (Auto) % Lymph % (Auto) % [place] % (Auto) % Eos % (Auto) % Baso % (Auto) % Neut # (Auto) (1.4-6.5) K/uL Lymph # (Auto) (1.2-3.4) K/uL [place] # (Auto) (0.11-0.59) K/uL Eos # (Auto) (0-0.5) K/uL Baso # (Auto) (0-0.2) K/uL Immature Gran # (Auto) (0.00-0.02) K/uL APTT (21.0-31.0) Seconds PTT Ratio Sodium 141 (136-145) mmol/L Potassium 4.0 (3.5-5.1) mmol/L Chloride 109 H (98-107) mmol/L Carbon Dioxide 25 (21-32) mmol/L Anion Gap 7.0 (3-11) BUN 11 (7-18) mg/dl Creatinine 0.77 (0.6-1.4) mg/dl Est Cr Clr Drug Dosing 152.3 ml/min Est GFR ( Amer) 124.4 ml/min Est GFR (Non-Af Amer) 107.3 ml/min BUN/Creatinine Ratio 14.0 (10-20) Glucose 93 (70-99) mg/dl Calcium 8.0 L (8.5-10.1) mg/dl Phosphorus 2.4 L (2.5-4.9) mg/dl Magnesium 2.2 (1.8-2.4) mg/dl Total Bilirubin 0.4 (0.2-1) mg/dl AST 17 (15-37) U/L ALT 33 (12-78) U/L Alkaline Phosphatase 49 (45-117) U/L Troponin I < 0.015 (0-0.045) ng/ml Total Protein 6.8 (6.4-8.2) gm/dl Albumin 3.2 L (3.4-5.0) gm/dl Globulin 3.6 (2.5-4.0) gm/dl Albumin/Globulin Ratio 0.9 (0.9-2) Lipase (73-393) U/L COVID-19 Eval Order SARS-CoV-2 (PCR) (Negative) 05/06/21 05/06/21 05/06/21 Range/Units 20:03 15:00 15:00 WBC (4.8-10.8) K/uL RBC (4.7-6.1) M/uL Hgb (14.0-18.0) g/dL Hct (42-52) % MCV (80-100) fL MCH (25-34) pg MCHC (32-36) g/dL RDW Std Deviation (36.4-46.3) fL RDW Coeff of [place] (11.5-14.5) % Plt Count (130-400) K/uL MPV (7.4-10.4) fL Immature Gran % (Auto) % Neut % (Auto) % Lymph % (Auto) % [place] % (Auto) % Eos % (Auto) % Baso % (Auto) % Neut # (Auto) (1.4-6.5) K/uL Lymph # (Auto) (1.2-3.4) K/uL [place] # (Auto) (0.11-0.59) K/uL Eos # (Auto) (0-0.5) K/uL Baso # (Auto) (0-0.2) K/uL Immature Gran # (Auto) (0.00-0.02) K/uL APTT (21.0-31.0) Seconds PTT Ratio Sodium (136-145) mmol/L Potassium (3.5-5.1) mmol/L Chloride (98-107) mmol/L Carbon Dioxide (21-32) mmol/L Anion Gap (3-11) BUN (7-18) mg/dl Creatinine (0.6-1.4) mg/dl Est Cr Clr Drug Dosing ml/min Est GFR ( Amer) ml/min Est GFR (Non-Af Amer) ml/min BUN/Creatinine Ratio (10-20) Glucose (70-99) mg/dl Calcium (8.5-10.1) mg/dl Phosphorus (2.5-4.9) mg/dl Magnesium (1.8-2.4) mg/dl Total Bilirubin (0.2-1) mg/dl AST (15-37) U/L ALT (12-78) U/L Alkaline Phosphatase (45-117) U/L Troponin I < 0.015 (0-0.045) ng/ml Total Protein (6.4-8.2) gm/dl Albumin (3.4-5.0) gm/dl Globulin (2.5-4.0) gm/dl Albumin/Globulin Ratio (0.9-2) Lipase (73-393) U/L COVID-19 Eval Order Covid19 at [facility] SARS-CoV-2 (PCR) NEGATIVE (Negative) 05/06/21 05/06/21 05/06/21 Range/Units 13:45 13:45 13:45 WBC 10.84 H (4.8-10.8) K/uL RBC 4.85 (4.7-6.1) M/uL Hgb 15.9 (14.0-18.0) g/dL Hct 44.7 (42-52) % MCV 92.2 (80-100) fL MCH 32.8 (25-34) pg MCHC 35.6 (32-36) g/dL RDW Std Deviation 45.9 (36.4-46.3) fL RDW Coeff of [place] 13.5 (11.5-14.5) % Plt Count 171 (130-400) K/uL MPV 10.6 H (7.4-10.4) fL Immature Gran % (Auto) 0.2 % Neut % (Auto) 78.3 % Lymph % (Auto) 11.5 % [place] % (Auto) 9.2 % Eos % (Auto) 0.6 % Baso % (Auto) 0.2 % Neut # (Auto) 8.48 H (1.4-6.5) K/uL Lymph # (Auto) 1.25 (1.2-3.4) K/uL [place] # (Auto) 1.00 H (0.11-0.59) K/uL Eos # (Auto) 0.07 (0-0.5) K/uL Baso # (Auto) 0.02 (0-0.2) K/uL Immature Gran # (Auto) 0.02 (0.00-0.02) K/uL APTT 25.9 (21.0-31.0) Seconds PTT Ratio 1.0 Sodium 141 (136-145) mmol/L Potassium 4.1 (3.5-5.1) mmol/L Chloride 108 H (98-107) mmol/L Carbon Dioxide 26 (21-32) mmol/L Anion Gap 7.0 (3-11) BUN 12 (7-18) mg/dl Creatinine 0.97 (0.6-1.4) mg/dl Est Cr Clr Drug Dosing 120.9 ml/min Est GFR ( Amer) 106.6 ml/min Est GFR (Non-Af Amer) 91.9 ml/min BUN/Creatinine Ratio 12.9 (10-20) Glucose 117 H (70-99) mg/dl Calcium 8.5 (8.5-10.1) mg/dl Phosphorus (2.5-4.9) mg/dl Magnesium (1.8-2.4) mg/dl Total Bilirubin 0.3 (0.2-1) mg/dl AST 24 (15-37) U/L ALT 35 (12-78) U/L Alkaline Phosphatase 65 (45-117) U/L Troponin I < 0.015 (0-0.045) ng/ml Total Protein 7.2 (6.4-8.2) gm/dl Albumin 3.5 (3.4-5.0) gm/dl Globulin 3.7 (2.5-4.0) gm/dl Albumin/Globulin Ratio 0.9 (0.9-2) Lipase 105 (73-393) U/L COVID-19 Eval Order SARS-CoV-2 (PCR) (Negative) Diagnostic Findings EKG reviewed from admission; Normal sinus rhythm Normal ECG When compared with ECG of 23-MAY-2017 06:35, No significant change was found Telemetry reviewed -sinus bradycardia in the 50s and normal sinus rhythm in the 60s. No concerning arrhythmias. Chest xray report reviewed - IMPRESSION: No acute cardiopulmonary findings. Cardiac catheterization report reviewed dated May 2020 at [facility]: CONCLUSIONS Final * Stable mild-moderate CAD with widely patent stents. No new culprit lesions identified to explain his symptoms.* LAD & Diagonal have minimal luminal irregularities. Ostial Cx has 40% stenosis; LCX stent is patent. Minimal luminal irregularities in OM branches.* RCA with diffuse moderate luminal irregularities. Proximal RCA stent is patent. Mid RCA has 40% stenosis. rPDA stent is patent.* LVEDP 12 mmHg, normal. Medications Administered Medications clopidogrel 75 mg PO DAILY #0 12/22/09 [History Confirmed 05/06/21] metoprolol tartrate 50 mg PO BID #0 12/22/09 [History Confirmed 05/06/21] aspirin 81 mg PO DAILY #0 01/02/14 [History Confirmed 05/06/21] atorvastatin 80 mg PO HS #0 tab 01/02/14 [History Confirmed 05/06/21] isosorbide mononitrate 120 mg PO QAM #0 tab 12/07/15 [History Confirmed 05/06/21] alprazolam 0.5 mg PO TID PRN #0 05/22/17 [History Confirmed 05/06/21] lisinopril 5 mg PO DAILY #0 05/22/17 [History Confirmed 05/06/21] nitroglycerin 0.4 mg SUBLINGUAL UD PRN #100 tab 05/22/17 [History Confirmed 05/06/21] Home Medications Acetaminophen (Acetaminophen 325 Mg Tab) 650 mg PO Q4H PRN PRN Reason: Moderate Pain Stop: 06/05/21 18:16 Alprazolam (Alprazolam 0.5 Mg Tablet) 0.5 mg PO TID PRN PRN Reason: Anxiety Stop: 06/05/21 17:39 Last Admin: 05/06/21 17:43 Dose: 0.5 mg Documented by: Aspirin (Aspirin 81 Mg Ectab) 81 mg PO DAILY [facility] Stop: 06/06/21 08:59 Last Admin: 05/07/21 07:52 Dose: 81 mg Documented by: Atorvastatin Calcium (Atorvastatin 40 Mg Tab) 80 mg PO HS [facility] Stop: 06/05/21 20:59 Last Admin: 05/06/21 20:55 Dose: 80 mg Documented by: Clopidogrel Bisulfate (Clopidogrel Bisulfate 75 Mg Tab) 75 mg PO DAILY [facility] Stop: 06/06/21 08:59 Last Admin: 05/07/21 07:52 Dose: 75 mg Documented by: Isosorbide Mononitrate (Isosorbide [place] Extended Rel 60 Mg Tabcr) 120 mg PO QAM [facility] Stop: 06/06/21 08:59 Last Admin: 05/07/21 07:51 Dose: 120 mg Documented by: Lisinopril (Lisinopril 5 Mg Tab) 5 mg PO DAILY [facility] Stop: 06/06/21 08:59 Last Admin: 05/07/21 07:51 Dose: 5 mg Documented by: Metoprolol Tartrate (Metoprolol Tartrate 50 Mg Tab) 50 mg PO BID [facility] Stop: 06/05/21 20:59 Last Admin: 05/07/21 07:51 Dose: 50 mg Documented by: Miscellaneous (Remove Nicoderm Patch) 1 ea N/A DAILY@0859 [facility] Stop: 06/06/21 08:58 Last Admin: 05/07/21 07:52 Dose: 1 ea Documented by: Nicotine (Nicotine 21 Mg/24 Hr Tdsy) 21 mg TD QAM [facility] Stop: 06/05/21 18:16 Last Admin: 05/07/21 07:52 Dose: 21 mg Documented by: Nitroglycerin (Nitroglycerin Sl 0.4 Mg/Tab Tab) 0.4 mg SL UD PRN PRN Reason: Chest Pain Stop: 06/05/21 18:16 Ondansetron HCl (Ondansetron Inj 2 Mg/Ml 2 Ml Vial) 4 mg IV Q4H PRN PRN Reason: Nausea And Vomiting Stop: 06/05/21 18:16 Current Inpatient Medications Acetaminophen (Acetaminophen 325 Mg Tab) 650 mg PO Q4H PRN PRN Reason: Moderate Pain Stop: 06/05/21 18:16 Alprazolam (Alprazolam 0.5 Mg Tablet) 0.5 mg PO TID PRN PRN Reason: Anxiety Stop: 06/05/21 17:39 Last Admin: 05/06/21 17:43 Dose: 0.5 mg Documented by: Aspirin (Aspirin 81 Mg Ectab) 81 mg PO DAILY [facility] Stop: 06/06/21 08:59 Last Admin: 05/07/21 07:52 Dose: 81 mg Documented by: Atorvastatin Calcium (Atorvastatin 40 Mg Tab) 80 mg PO HS [facility] Stop: 06/05/21 20:59 Last Admin: 05/06/21 20:55 Dose: 80 mg Documented by: Clopidogrel Bisulfate (Clopidogrel Bisulfate 75 Mg Tab) 75 mg PO DAILY [facility] Stop: 06/06/21 08:59 Last Admin: 05/07/21 07:52 Dose: 75 mg Documented by: Isosorbide Mononitrate (Isosorbide [place] Extended Rel 60 Mg Tabcr) 120 mg PO QAM [facility] Stop: 06/06/21 08:59 Last Admin: 05/07/21 07:51 Dose: 120 mg Documented by: Lisinopril (Lisinopril 5 Mg Tab) 5 mg PO DAILY [facility] Stop: 06/06/21 08:59 Last Admin: 05/07/21 07:51 Dose: 5 mg Documented by: Metoprolol Tartrate (Metoprolol Tartrate 50 Mg Tab) 50 mg PO BID [facility] Stop: 06/05/21 20:59 Last Admin: 05/07/21 07:51 Dose: 50 mg Documented by: Miscellaneous (Remove Nicoderm Patch) 1 ea N/A DAILY@0859 [facility] Stop: 06/06/21 08:58 Last Admin: 05/07/21 07:52 Dose: 1 ea Documented by: Nicotine (Nicotine 21 Mg/24 Hr Tdsy) 21 mg TD QAM [facility] Stop: 06/05/21 18:16 Last Admin: 05/07/21 07:52 Dose: 21 mg Documented by: Nitroglycerin (Nitroglycerin Sl 0.4 Mg/Tab Tab) 0.4 mg SL UD PRN PRN Reason: Chest Pain Stop: 06/05/21 18:16 Ondansetron HCl (Ondansetron Inj 2 Mg/Ml 2 Ml Vial) 4 mg IV Q4H PRN PRN Reason: Nausea And Vomiting Stop: 06/05/21 18:16 (1) CAD (coronary artery disease) Associated angina: with unspecified form of angina Coronary Disease- Associated Artery/Lesion type: [place] artery [place] vs. transplanted heart: [place] heart Qualified Code(s): I25.119 - Atherosclerotic heart disease of [place] coronary artery with unspecified angina pectoris (2) Hypertension Hypertension type: essential hypertension Qualified Code(s): I10 - Essential (primary) hypertension
[2021-05-07] MEDS ORDERED: lisinopril 5 MG TAB PO SCH (09:00)
[2021-05-07] MEDS ORDERED: ASPIRIN 81 MG ECTAB PO SCH (09:00)
[2021-05-07] MEDS ORDERED: CLOPIDOGREL BISULFATE 75 MG TAB PO SCH (09:00)
[2021-05-07] MEDS ORDERED: ISOSORBIDE MONO EXTENDED REL 60 MG TABCR PO SCH (09:00)
[2021-05-07] MEDS ORDERED: METOPROLOL TARTRATE 1 MG/ML VIAL IV ONE (10:21)
[2021-05-07] MEDS ORDERED: ATROPINE SULFATE 0.1 MG/ML 10ML SYR IV ONE (10:21)
[2021-05-07] MEDS ORDERED: DOBUTamine HCL 12.5 MG/ML 20 ML VIAL IV ONE (10:21)
--- NOTE | 2021-05-07 11:53 | Hospitalist Progress Note ---
Date of Service May 07, 2021 Assessment & Plan (1) Unstable angina: - Admit to tele for observation for r/o -Patient developed cp with minimal ADLS, walking in kitchen, became sob/weak/chest pressure. He took 3 nitro tablets prior to presentation to the ER via EMS, currently reports having chest tightness, no chest pressure or pain, no further having shortness of breath. Reports having a slight headache currently likely secondary to nitroglycerin. - Trend cardiac biomarkers, initial set was negative - EKG reviewed as above -not appear to have ST wave changes compared to previous - Check 2 D echo - make n.p.o. after midnight in case needs for cardiac cath -Consult cardiology-discussed with Dr. Collins, no need for heparin drip at this time with no EKG changes, continue Plavix and aspirin -Continue metoprolol, lisinopril, atorvastatin -Remains free of any chest pain and/or palpitation -Status post negative dobutamine stress echo -He will be discharged home this afternoon (2) CAD (coronary artery disease): - Significant Stenting history: NSTEMI with balloon angioplasty to the diagonal branch of the LAD on 12/25/2010 Bare-metal stent to the circumflex on 12/03/2012 Recurrent angina on 05/13/16 -bare-metal stent of a 90% ostial right RCA at [facility], RICKY to the right PDA at [facility] [place] on 07/08/2016 He had repeat cardiac cath in May 2017 which showed stable CAD. Repeat cath in May 2020 for diagnostic purposes showed moderate CAD with widely patent stents - Significant fam hx: father who had ME in his 40s and subsequently had heart transplant due to severe ischemic cardiomyopathy, and due to metastatic cancer at age 62 - Cont statin (3) Hypertension: - Cont antihypertensives as above -He was noted to have a very high blood pressure at home with anxiety symptoms involving tremors and weakness -His blood pressure remains stable since admission (4) Dyslipidemia: -Continue atorvastatin 80 mg at bedtime (5) Tobacco use disorder: -Counseled on cessation of smoking at bedside, he smoked 4 to 5 cigarettes this morning, has smoked 1-1.5 PPD x30 years (6) Obesity (BMI 30.0-34.9): -BMI of 33.8, diet and exercise to be encouraged throughout hospital stay DVT PPx: - teds, plavix and aspirin CODE: Full Dispo: Will be discharged home this afternoon Admission and Anticipated Discharge Date Admission Date: May 06, 2021 Subjective 05/07/2021 The patient was seen and examined in telemetry unit He was admitted with the chest pain with a complex cardiac history He has had very high blood pressure of systolic more than 190 before admission He complains to have weakness but otherwise no more chest pain and no palpitation Review of Systems Review of Systems: All systems reviewed and are unremarkable except as noted below Neurologic: + generalized weakness Physical Exam Physical Exam: General: awake, alert, no apparent distress Head: Normocephalic, atraumatic ENT: PERRL, EOMI, no pharyngeal exudate, mucous membranes moist Chest: Diminished slightly and faint wheeze, on room air. Cardiac: Regular rate and rhythm, no murmur, no JVD, normal peripheral pulses, good capillary refill Abdominal: NABS x 4 quadrants, soft, + small umbilical hernia, nondistended, nontender to palpation, no rebound or guarding Extremities: Normal inspection, no peripheral edema or erythema, calfs nontender to palpation Psych: Normal mood and affect Neuro: AAO x 3, strength intact bilaterally and rated 5/5, no motor deficits, speech is clear, no peripheral sensory deficits Results & Data Results & Data ([facility]) Vital Signs (Past 12 Hours) Vital Signs Temp Pulse Pulse Resp BP BP Pulse Ox 05/07/21 08:24 36.7 C 61 18 138/91 96 05/07/21 08:00 60 05/07/21 03:54 36.9 C 60 16 116/72 93 05/06/21 23:59 36.9 C 62 20 131/71 93 Laboratory Results Short CBC 05/06/21 05/07/21 Range/Units 13:45 04:36 WBC 10.84 H 9.37 (4.8-10.8) K/uL Hgb 15.9 15.5 (14.0-18.0) g/dL Hct 44.7 44.3 (42-52) % Plt Count 171 153 (130-400) K/uL BMP 05/06/21 05/07/21 13:45 04:36 Sodium 141 141 Potassium 4.1 4.0 Chloride 108 H 109 H Carbon Dioxide 26 25 BUN 12 11 Creatinine 0.97 0.77 Glucose 117 H 93 Calcium 8.5 8.0 L Cardiac Enzymes 05/06/21 05/06/21 05/07/21 Range/Units 13:45 20:03 04:36 Troponin I < 0.015 < 0.015 < 0.015 (0-0.045) ng/ml Liver Function 05/06/21 05/07/21 Range/Units 13:45 04:36 Total Bilirubin 0.3 0.4 (0.2-1) mg/dl AST 24 17 (15-37) U/L ALT 35 33 (12-78) U/L Alkaline Phosphatase 65 49 (45-117) U/L Albumin 3.5 3.2 L (3.4-5.0) gm/dl Medications Administered Current Inpatient Medications Acetaminophen (Acetaminophen 325 Mg Tab) 650 mg PO Q4H PRN PRN Reason: Moderate Pain Stop: 06/05/21 18:16 Alprazolam (Alprazolam 0.5 Mg Tablet) 0.5 mg PO TID PRN PRN Reason: Anxiety Stop: 06/05/21 17:39 Last Admin: 05/06/21 17:43 Dose: 0.5 mg Documented by: Aspirin (Aspirin 81 Mg Ectab) 81 mg PO DAILY CARLOS Stop: 06/06/21 08:59 Last Admin: 05/07/21 07:52 Dose: 81 mg Documented by: Atorvastatin Calcium (Atorvastatin 40 Mg Tab) 80 mg PO HS CARLOS Stop: 06/05/21 20:59 Last Admin: 05/06/21 20:55 Dose: 80 mg Documented by: Clopidogrel Bisulfate (Clopidogrel Bisulfate 75 Mg Tab) 75 mg PO DAILY CARLOS Stop: 06/06/21 08:59 Last Admin: 05/07/21 07:52 Dose: 75 mg Documented by: Isosorbide Mononitrate (Isosorbide [place] Extended Rel 60 Mg Tabcr) 120 mg PO QAM CARLOS Stop: 06/06/21 08:59 Last Admin: 05/07/21 07:51 Dose: 120 mg Documented by: Lisinopril (Lisinopril 5 Mg Tab) 5 mg PO DAILY CARLOS Stop: 06/06/21 08:59 Last Admin: 05/07/21 07:51 Dose: 5 mg Documented by: Metoprolol Tartrate (Metoprolol Tartrate 50 Mg Tab) 50 mg PO BID CARLOS Stop: 06/05/21 20:59 Last Admin: 05/07/21 07:51 Dose: 50 mg Documented by: Miscellaneous (Remove Nicoderm Patch) 1 ea N/A DAILY@0859 [facility] Stop: 06/06/21 08:58 Last Admin: 05/07/21 07:52 Dose: 1 ea Documented by: Nicotine (Nicotine 21 Mg/24 Hr Tdsy) 21 mg TD QAM [facility] Stop: 06/05/21 18:16 Last Admin: 05/07/21 07:52 Dose: 21 mg Documented by: Nitroglycerin (Nitroglycerin Sl 0.4 Mg/Tab Tab) 0.4 mg SL UD PRN PRN Reason: Chest Pain Stop: 06/05/21 18:16 Ondansetron HCl (Ondansetron Inj 2 Mg/Ml 2 Ml Vial) 4 mg IV Q4H PRN PRN Reason: Nausea And Vomiting Stop: 06/05/21 18:16 (1) CAD (coronary artery disease) Coronary Disease-Associated Artery/Lesion type: [place] artery [place] vs. transplanted heart: [place] heart Associated angina: with unspecified form of angina Qualified Code(s): I25.119 - Atherosclerotic heart disease of [place] coronary artery with unspecified angina pectoris (2) Hypertension Hypertension type: essential hypertension Qualified Code(s): I10 - Essential (primary) hypertension
--- NOTE | 2021-05-07 16:03 | Electrocardiogram Report ---
Test Reason : Blood Pressure : / mmHG Vent. Rate : 074 BPM Atrial Rate : 074 BPM P-R Int : 172 ms QRS Dur : 088 ms QT Int : 372 ms P-R-T Axes : 066 005 057 degrees QTc Int : 412 ms Normal sinus rhythm Normal ECG When compared with ECG of 23-MAY-2017 06:35, No significant change was found Confirmed by Jean-Pierre Bolaños ([id number]) on 05/07/2021 4:03:44 PM Referred By: SELF Confirmed By:Jean-Pierre Bolaños
--- NOTE | 2021-05-08 08:43 | Discharge Summary ---
Date of Service May 08, 2021 Admission HPI Per Admitting Provider This is a 50-year-old male with PMHx with significant CAD, HTN, HLD, and chronic tobacco use, who presents to the ER with substernal chest pain and associated shortness of breath. This started at 11:30am when he got up from eating breakfast and walked to the kitchen sink carrying a plate. He felt weak in both arms, and became shakey. Denies radiation of the pain, abd pain, nausea, or vomiting. At home he took 3 nitro tablets over a 35 minute timeframe at home, and then called EMS. Currently feels chest tightness but denies feeling same way he did earlier. He reports that this felt similar to previous episodes of CAD. He was supposed to work a double shift tonight and admits to feeling a bit anxious about this. He uses xanax for anxiety prn, and would like one now. Stenting history: NSTEMI with balloon angioplasty to the diagonal branch of the LAD on 12/25/2010 Bare-metal stent to the circumflex on 12/03/2012 Recurrent angina on 05/13/16 -bare-metal stent of a 90% ostial right RCA at [facility], RICKY to the right PDA at [facility] [place] on 07/08/2016 He had repeat cardiac cath in May 2017 which showed stable CAD. Family history: He has significant family history of CAD with his father who had KS in his 40s and subsequently had heart transplant due to severe ischemic cardiomyopathy, and due to metastatic cancer at age 62. Admission Exam Per Admitting Provider Physical Exam: General: awake, alert, no apparent distress Head: Normocephalic, atraumatic ENT: PERRL, EOMI, no pharyngeal exudate, mucous membranes moist Chest: Diminished slightly and faint wheeze, on room air. Cardiac: Regular rate and rhythm, no murmur, no JVD, normal peripheral pulses, good capillary refill Abdominal: NABS x 4 quadrants, soft, + small umbilical hernia, nondistended, nontender to palpation, no rebound or guarding Extremities: Normal inspection, no peripheral edema or erythema, calfs nontender to palpation Psych: Normal mood and affect Neuro: AAO x 3, strength intact bilaterally and rated 5/5, no motor deficits, speech is clear, no peripheral sensory deficits Principal Diagnosis Chest pain-no ACS, negative on dobutamine stress echo, CAD, anxiety with high blood pressure-resolved Discharge Exam Constitutional WD/WN, vitals as above well developed and well nourished; no acute distress Eyes PERRL, conjunctivae normal, anicteric sclerae Neck trachea midline, no thyromegaly normal visual inspection Respiratory normal respiratory effort, lungs clear to auscultation Cardiovascular RRR, no murmur, no edema Vessels: no JVD Gastrointestinal (Abdomen) normal bowel sounds, soft, nontender, no hepatosplenomegaly Musculoskeletal no cyanosis or clubbing, extremities motor strength 5/5 Skin no rashes, warm and dry Neurologic PERRL, EOMI, accommodation nl, no face palsy, no dysarthria Psychiatric A+Ox3, euthymic affect Discharge Data Allergies Allergy/AdvReac Type Severity Reaction Status Date / Time No Known Allergies Allergy Unknown Verified 05/06/21 15:06 Consultations 05/06/21 15:49 ED Decision to Admit Stat 05/06/21 18:17 Consult Cardiology Routine Hospital Course (1) Unstable angina: - Admit to tele for observation for r/o -Patient developed cp with minimal ADLS, walking in kitchen, became sob/weak/chest pressure. He took 3 nitro tablets prior to presentation to the ER via EMS, currently reports having chest tightness, no chest pressure or pain, no further having shortness of breath. Reports having a slight headache currently likely secondary to nitroglycerin. - Trend cardiac biomarkers, initial set was negative - EKG reviewed as above -not appear to have ST wave changes compared to previous - Check 2 D echo - make n.p.o. after midnight in case needs for cardiac cath -Consult cardiology-discussed with Dr. Collins, no need for heparin drip at this time with no EKG changes, continue Plavix and aspirin -Continue metoprolol, lisinopril, atorvastatin -Remains free of any chest pain and/or palpitation -Status post negative dobutamine stress echo -He will be discharged home this afternoon (2) CAD (coronary artery disease): - Significant Stenting history: NSTEMI with balloon angioplasty to the diagonal branch of the LAD on 12/25/2010 Bare-metal stent to the circumflex on 12/03/2012 Recurrent angina on 05/13/16 -bare-metal stent of a 90% ostial right RCA at [facility], RICKY to the right PDA at [facility] [place] on 07/08/2016 He had repeat cardiac cath in May 2017 which showed stable CAD. Repeat cath in May 2020 for diagnostic purposes showed moderate CAD with widely patent stents - Significant fam hx: father who had KS in his 40s and subsequently had heart transplant due to severe ischemic cardiomyopathy, and due to metastatic cancer at age 64 - Cont statin (3) Hypertension: - Cont antihypertensives as above -He was noted to have a very high blood pressure at home with anxiety symptoms involving tremors and weakness -His blood pressure remains stable since admission (4) Dyslipidemia: -Continue atorvastatin 80 mg at bedtime (5) Tobacco use disorder: -Counseled on cessation of smoking at bedside, he smoked 4 to 5 cigarettes this morning, has smoked 1-1.5 PPD x30 years (6) Obesity (BMI 30.0-34.9): -BMI of 33.8, diet and exercise to be encouraged throughout hospital stay DVT PPx: - teds, plavix and aspirin CODE: Full Dispo: Will be discharged home this afternoon Total Time Total Time Spent Total Time Spent (In Minutes): 35 minutes Total Time Includes: Examination of the Patient, Discharge Planning, Medication Reconciliation and Communication With Other Providers Discharge Plan Discharge Items Patient Disposition: Home - Self-Care Reason For Visit: CHEST PAIN Discharge Diagnosis: Chest pain-no ACS, negative on dobutamine stress echo, CAD, anxiety with high blood pressure-resolved Condition on Discharge: Good Activity: Resume your previous activity Non-emergency contact: Primary Care Provider Call non-emergency contact if: you have any medication questions and your symptoms worsen Follow-up/Referrals: Dirk Mcnulty MD [Primary Care Provider] - 05/11/21 11:20 am (Date & Time 05/11/2021 11:20 AM Provider Dirk Mcnulty MD Department [facility] ) Diet: Heart Healthy and Low Sodium (2gm) Addtl Attending Provider Instructions: Please take precaution to avoid falls No change in new medications Please quit smoking-nicotine patch has been sent to your pharmacy Please keep your appointment with the balance screwhead polisher and the PCP Pending Studies at Discharge: No Stand-Alone Forms: My IM5, Work/School Release, Smoking Cessation Medications and DC Order Prescriptions: New nicotine [Nicoderm CQ] 21 mg/24 hr Patch 24 Hour 21 mg transdermal QAM Qty: 28 RF: 0 Continued clopidogrel 75 mg Tablet 75 mg PO DAILY Qty: 0 RF: 0 metoprolol tartrate 50 mg Tablet 50 mg PO BID Qty: 0 RF: 0 aspirin 81 mg Tablet,Delayed Release (Dr/Ec) 81 mg PO DAILY Qty: 0 RF: 0 atorvastatin 80 mg Tablet 80 mg PO HS Qty: 0 RF: 0 isosorbide mononitrate 120 mg Tablet Extended Release 24 Hr 120 mg PO QAM Qty: 0 RF: 0 alprazolam 0.5 mg Tablet 0.5 mg PO TID PRN (Reason: Anxiety) Qty: 0 RF: 0 nitroglycerin 0.4 mg Tablet, Sublingual 0.4 mg sublingual UD PRN (Reason: Chest Pain) Qty: 100 RF: 3 lisinopril 5 mg Tablet 5 mg PO DAILY Qty: 0 RF: 0 Discharge Orders: Discharge Order (Routine); Ordered 05/07/21 Ordered By: Triston Chan Admission Data Admit Date/Time: 05/06/21 17:01 Attending Provider: Triston Chan Admit Provider: Triston Chan Primary Care Provider: Dirk Mcnulty Other Providers: Triston Chan ; Kenny Collins Other Interventions: Discharge Summary Assessment (RN) Last Done: 05/07/21 12:59
== END 2021-05-07 13:59 | disposition home or self-care (01) ==
LOC: ED 13:28 → 2E 13:28